=== PATIENT | male | born 1970 | race Hispanic/Latino ===

== ENCOUNTER 2017-03-23 23:33 | Observation (INO) | payer MEDICAID ==
--- NOTE | 2017-03-23 23:52 | ED PDOC ---
Arrival/HPI - General Time Seen by Provider: 03/23/17 23:35 Historian: Patient - History of Present Illness Narrative History of Present Illness (Text): 03/23/17 23:49 46y/o male, pmh including htn/hyperlipidemia/hypothyroidism/cad in 2013, nkda, psychiatric history including depression/schizoaffective/suicidal attempts/drug abuse, c/o lt. anterior chest pain x 2 hours with no fall or trauma. Sharp pain, radiating to the left arm, no numbness or tingling, stated that this feels like his previous AR, no nausea or vomiting, no heroine or cocaine abuse, no night sweat, no dizziness, no URI, no recent illness, no other medical or psychological complaints. Past Medical History - Provider Review Nursing Documentation Reviewed: Yes - Past History Past History: No Previous - Infectious Disease Hx of Infectious Diseases: None - Tetanus Immunization Tetanus Immunization: Up to Date - Cardiac Hx Cardiac Disorders: Yes Hx Hypertension: Yes - Pulmonary Hx Respiratory Disorders: No - Neurological Hx Neurological Disorder: No Hx Seizures: No - HEENT Hx HEENT Disorder: No - Renal Hx Renal Disorder: No - Endocrine/Metabolic Hx Hypothyroidism: No - Hematological/Oncological Hx Blood Disorders: No - Integumentary Hx Dermatological Disorder: No - Musculoskeletal/Rheumatological Hx Fractures: Yes (left leg splint-FX OF LEFT FEMUR FROM FALL) - Gastrointestinal Hx Gastrointestinal Disorders: No - Genitourinary/Gynecological Hx Genitourinary Disorders: No Hx Sexually Transmitted Diseases: No - Psychiatric Hx Substance Use: Yes - Past Surgical History Past Surgical History: No Previous - Surgical History Hx Appendectomy: Yes (at age 16) Hx Coronary Stent: Yes (x2 RCA 2013) Hx Orthopedic Surgery: Yes (for fracture of left foot) - Anesthesia Hx Anesthesia: Yes Hx Anesthesia Reactions: No - Suicidal Assessment Feels Threatened In Home Enviroment: No Family/Social History - Physician Review Nursing Documentation Reviewed: Yes Family/Social History: Unknown Family HX Smoking Status: Heavy Smoker > 10 Cigarettes Daily Hx Alcohol Use: No Hx Substance Use: Yes Hx Substance Use Treatment: No Allergies/Home Meds Allergies/Adverse Reactions: Allergies FISH Allergy (Intermediate, Verified 03/19/17 00:44) RASH Review of Systems - Review of Systems Constitutional: absent: Fatigue, Fevers Eyes: absent: Vision Changes ENT: absent: Hearing Changes Respiratory: absent: Cough, Sputum Cardiovascular: Chest Pain. absent: Palpitations, Edema Gastrointestinal: absent: Abdominal Pain, Nausea, Vomiting Skin: absent: Rash, Pruritis, Laceration, Abscess, Ulcer Psychiatric: absent: Anxiety, Depression, Suicidal Ideation Physical Exam Vital Signs Temp Pulse Resp BP Pulse Ox 03/24/17 03:21 65 18 117/67 95 03/24/17 02:02 72 18 127/75 95 03/24/17 00:47 74 18 123/79 96 03/23/17 23:33 98.4 F 73 18 122/68 94 L Pain Distress: Moderate Mental Status: Positive for: Alert and Oriented X 3 - Systems Exam Head: Present: Atraumatic, Normocephalic Pupils: Present: PERRL Extroacular Muscles: Present: EOMI Conjunctiva: Present: Normal Mouth: Present: Moist Mucous Membranes Neck: Present: Normal Range of Motion Respiratory/Chest: Present: Clear to Auscultation, Good Air Exchange. No: Respiratory Distress, Accessory Muscle Use, Wheezes, Decreased Breath Sounds, Rales, Retracting, Rhonchi, Tachypneic, Tender to Palpation Cardiovascular: Present: Regular Rate and Rhythm, Normal S1, S2. No: Murmurs Abdomen: Present: Normal Bowel Sounds. No: Tenderness, Distention, Peritoneal Signs Back: Present: Normal Inspection Upper Extremity: Present: Normal Inspection. No: Cyanosis, Edema Lower Extremity: Present: Normal Inspection. No: Edema Neurological: Present: GCS=15, Speech Normal, Motor Func Grossly Intact, Gait Normal, Memory Normal, Other (no tongue fasciculations, no hand tremors. ) Skin: Present: Warm, Dry, Normal Color. No: Rashes Psychiatric: Present: Alert, Oriented x 3, Normal Insight, Normal Concentration Medical Decision Making ED Course and Treatment: 03/23/17 23:52 -labs/ua/uds/cardiac enzymes/BNP -ekg -chest x-ray -IVF/pepcid/aspirin 325mg po -quality assurance monitor -observe and reassess 03/24/17 00:13 -Pt. still has chest pain despite the aspirin -morphine 4mg IV, nitro SL ordered. -IVF @ 100cc/hour ordered. 03/24/17 00:43 -Last Cath was from 05/13/2013 which was post PCI 11/23/2012: show 0% stenosis which advised stop smoking and continue aspirin and plavix by Dr. Ureña. -EKG : NSR @ 75 BPM, no ST elevation or depression, no T wave inversion, compared with previous ekg. -Chest x-ray show mild cardiomegally with no active infiltrate/consolidation. -Labs show no acute findings with negative 1 set of troponin. -UA show no UTI -UDS show +benzo/+methadone/+opiate -MARTHA score is 3 with 13% risk of 14 days. -Pt. need to be admitted for at least observation to trend troponin levels with engineering officer consult. -I discussed with the patient and he agreed to be admitted to telemetry for observation. 03/24/17 00:49 -Night Dr. fenton and pending for call back. 03/24/17 00:55 -I spoke to DR. Blackburn and the chairman president and chief executive officer Dr. Fermin, discussed about the labs/radiology and ekg results, they will come to evaluate the patient and admit the patient. -I spoke to Dr. Cash about the case/labs/risk factors and he agreed on the admission plan. - Lab Interpretations Lab Results: 03/24/17 00:00 03/24/17 00:00 Lab Results 03/24/17 00:00: Alcohol, Quantitative < 10 03/24/17 00:00: Sodium 138, Potassium 3.8, Chloride 99, Carbon Dioxide 28, Anion Gap 15, BUN 20, Creatinine 0.8, Est GFR ( Amer) > 60, Est GFR (Non- Af Amer) > 60, Random Glucose 106, Calcium 9.3, Magnesium 2.3 H, Total Bilirubin 0.6, AST 30, ALT 36, Alkaline Phosphatase 56, Lactate Dehydrogenase 401, Total Creatine Kinase 111, Troponin I < 0.01, NT-Pro-B Natriuret Pep 26.6, Total Protein 8.2, Albumin 4.3, Globulin 3.8, Albumin/Globulin Ratio 1.1, Lipase 50 03/24/17 00:00: WBC 12.6 H D, RBC 4.66, Hgb 14.2, Hct 41.2 L, MCV 88.4, MCH 30.5 , MCHC 34.5, RDW 13.6, Plt Count 252, MPV 9.4, Gran % 72.4 H, Lymph % (Auto) 18.9 L, [place] % (Auto) 7.2 H, Eos % (Auto) 1.2 L, Baso % (Auto) 0.3, Gran # 9.15 H, Lymph # 2.4, [place] # 0.9 H, Eos # 0.2, Baso # 0.04 I have reviewed the lab results: Yes Interpretation: No clinic. lab abnormalty - RAD Interpretation Radiology Orders: 03/23/17 23:47 CHEST PORTABLE [RAD] Stat - EKG Interpretation EKG Interpretation (Text): 03/23/17 23:53 -EKG : NSR @ 75 BPM, no ST elevation or depression, no T wave inversion, compared with previous ekg. Interpreted by ED Physician: Yes Type: 12 lead EKG Comparison: Com.w/previous EKG - Medication Orders Current Medication Orders: Discontinued Medications Aspirin (Aspirin) 325 mg PO STAT STA Stop: 03/23/17 23:48 Last Admin: 03/24/17 00:08 Dose: 325 mg Aspirin (Aspirin) 325 mg PO DAILY OTTO Last Admin: 03/24/17 12:42 Dose: 325 mg Atorvastatin Calcium (Lipitor) 20 mg PO DIN OTTO Atorvastatin Calcium (Lipitor) 40 mg PO DIN OTTO Famotidine (Pepcid) 20 mg IVP STAT STA Stop: 03/23/17 23:52 Last Admin: 03/24/17 00:09 Dose: 20 mg Heparin Sodium (Porcine) (Heparin) 5,000 units SC Q8 OTTO PRN Reason: Protocol Last Admin: 03/24/17 06:49 Dose: 5,000 units Sodium Chloride (Sodium Chloride 0.9%) 1,000 mls @ 100 mls/hr IV .Q10H OTTO Last Admin: 03/24/17 00:16 Dose: 100 mls/hr Morphine Sulfate (Morphine) 4 mg IVP STAT STA Stop: 03/24/17 00:12 Last Admin: 03/24/17 00:37 Dose: 4 mg Re-Assess: VICTORINO Pain Assessment Document 03/24/17 01:37 SB (Rec: 03/24/17 03:34 SB [id number]) Pain Reassessment Is this a pain reassessment? Yes Sleep Is patient sleeping during reassessment? No Presence of Pain Presence of Pain No Nicotine (Nicoderm Cq) 1 patch TD DAILY OTTO Last Admin: 04/28/17 10:25 Dose: 1 patch Nitroglycerin (Nitrostat Sl Tab) 0.3 mg SL STAT STA Stop: 03/24/17 00:13 Last Admin: 03/24/17 00:38 Dose: Not Given Non-Admin Reason: Patient Refused Pantoprazole Sodium (Protonix Ec Tab) 40 mg PO 0630 OTTO Last Admin: 03/24/17 06:50 Dose: 40 mg Tramadol HCl (Ultram) 50 mg PO STAT STA Stop: 03/24/17 03:08 Last Admin: 03/24/17 03:33 Dose: 50 mg Re-Assess: VICTORINO Pain Assessment Document 03/24/17 04:33 BG (Rec: 03/24/17 04:50 BG [id number]) Pain Reassessment Is this a pain reassessment? Yes Sleep Is patient sleeping during reassessment? No Presence of Pain Presence of Pain Yes Pain Scale Used Pain Scale Used Numeric Location Pain Location Body Site Chest Description Intensity of Pain at present 8 MARTHA Risk Score for UA/NSTEMI - MARTHA Risk Score Age > 64: NO 3 or more CAD Risk Factors: YES Known CAD (Stenosis greater than 50%): YES Aspirin use in past 7 days: NO Severe Angina: YES EKG ST changes greater than 0.5mm: NO Positive Cardiac Marker: NO MARTHA Score: 3 % risk at 14 days of: all cause mortality, new or recurrent AR, or severe recurrent ischemia requiring urgen revascularization: 13% - PA / [employer] OPERATOR / Resident Statement / has reviewed & agrees with the documentation as recorded. Disposition/Present on Arrival - Present on Arrival Any Indicators Present on Arrival: No History of DVT/PE: No History of Uncontrolled Diabetes: No Urinary Catheter: No History of Decub. Ulcer: No History Surgical Site Infection Following: None - Disposition Have Diagnosis and Disposition been Completed?: Yes Diagnosis: Chest pain Disposition: HOSPITALIZED Disposition Time: 00:14 Patient Plan: Admission, Telemetry Condition: STABLE
[2017-03-24 00:08] LABS: ADD MANUAL DIFF? NO
[2017-03-24] MEDS ORDERED: Morphine 4 mg/ml ISec IVP STA (00:11)
[2017-03-24] MEDS ORDERED: Sodium Chloride 0.9% 1,000 ML IV SCH (00:15)
[2017-03-24 00:25] LABS: ALB/GLOB RATIO 1.1 (1.1-1.8); ALKALINE PHOSPHATASE 56 U/L (38-133); ALT/SGPT 36 U/L (7-56); AST/SGOT 30 U/L (15-59); BASO # 0.04 K/mm3 (0.0-2.0); BASO % 0.3 % (0.0-3.0); BILIRUBIN,TOTAL 0.6 mg/dL (0.2-1.3); BLOOD UREA NITROGEN 20 mg/dL (7-21); CALCIUM 9.3 mg/dL (8.4-10.5); CARBON DIOXIDE 28 mmol/L (21-33); CHLORIDE 99 mmol/L (98-107); EOS # 0.2 (0.0-0.7); EOS % 1.2 % (1.5-5.0); GFR AFRICAN-AMERICAN > 60; GLUCOSE,RANDOM 106 mg/dL (70-110); GRAN # 9.15 (1.4-6.5); GRAN % 72.4 % (50.0-68.0); HEMATOCRIT 41.2 % (42.0-52.0); LIPASE 50 U/L (23-300); LYMPH # 2.4 (1.2-3.4); LYMPH % 18.9 % (22.0-35.0); MAGNESIUM 2.3 mg/dL (1.7-2.2); MEAN CELL VOLUME 88.4 fL (80.0-105.0); MEAN CORPUSCULAR HEMOGLOBIN 30.5 pg (25.0-35.0); MEAN CORPUSCULAR HGB CONC 34.5 g/dl (31.0-37.0); MEAN PLATELET VOLUME 9.4 fl (7.0-11.0); MONO # 0.9 (0.1-0.6); MONO % 7.2 % (1.0-6.0); PLATELET COUNT 252 10^3/uL (120.0-450.0); POTASSIUM 3.8 mmol/L (3.6-5.0); RED CELL DISTRIBUTION WIDTH 13.6 % (11.5-14.5); SODIUM 138 mmol/L (132-148); TOTAL PROTEIN 8.2 g/dL (5.8-8.3); WHITE BLOOD COUNT 12.6 10^3/ul (4.5-11.0)
[2017-03-24 00:38] LABS: TROPONIN I < 0.01 ng/mL
[2017-03-24 02:02] VITALS: O2SAT 95
--- NOTE | 2017-03-24 03:20 | CP.PCM.HP ---
<Zander Perez - Last Filed: 03/24/17 03:24> History of Present Illness - History of Present Illness History of Present Illness: CC: "Chest Pain" HPI: Pt is a 46 year old male with a PMHx of IA s/p 2 stents (2012), HTN, Hypercholesterolemia, hypothyroidism, bipolar disorder, Hepatitis C, and depression who presents to the ED with complaints of chest pain that began 5 hours earlier. Pt reports that the pain is similar to the pain he experienced when he had an IA in 2012. Pt reports that the pain is on the right side of his chest, and it radiates down his arm. He states that the pain feels like heartburn. Pt states that he is in a lot of pain and wants pain medications. Pt denies fever, chills, shortness of breath, nausea, and vomiting. PMHx: IA s/p 2 stents (2012), HTN, Hypercholesterolemia, hypothyroidism, bipolar disorder, and depression Home medications: He reports that his pharmacy is [email or web address], cannot recall all of his medications. He recalls neurontin 800 mg po tid, seroquel 100 mg po hs, oxycodone 15 mg po bid Allergies: Fish, NKDA Social Hx: reports smoking 1 pack of cigarettes/day, denies alcohol use, reports he used heroin in the past Past Surgical Hx: Left ankle fracture (1 year ago), Appendectomy (20 years ago) Family Hx: Brain cancer (brother), DM Present on Admission - Present on Admission Any Indicators Present on Admission: No Review of Systems - Constitutional Constitutional: absent: Chills, Fever - EENT Eyes: absent: Blurred Vision, Change in Vision Ears: absent: Dizziness Nose/Mouth/Throat: absent: Epistaxis, Nasal Congestion - Cardiovascular Cardiovascular: Chest Pain, Chest Pain at Rest. absent: Diaphoresis, Dyspnea, Leg Edema, Palpitations - Respiratory Respiratory: absent: Cough, Dyspnea - Gastrointestinal Gastrointestinal: Heartburn. absent: Belching, Bloating - Genitourinary Genitourinary: absent: Dysuria - Musculoskeletal Musculoskeletal: absent: Atrophy, Back Pain - Neurological Neurological: absent: Abnormal Hearing, Behavioral Changes - Psychiatric Psychiatric: absent: Anxiety - Endocrine Endocrine: absent: Palpitations - Hematologic/Lymphatic Hematologic: absent: Easy Bleeding Past Patient History - Infectious Disease Hx of Infectious Diseases: None - Tetanus Immunizations Tetanus Immunization: Up to Date - Past Medical History & Family History Past Medical History?: Yes - Past Social History Smoking Status: Heavy Smoker > 10 Cigarettes Daily - CARDIAC Hx Cardiac Disorders: Yes Hx Hypertension: Yes - PULMONARY Hx Respiratory Disorders: No - NEUROLOGICAL Hx Neurological Disorder: No Hx Seizures: No - HEENT Hx HEENT Problems: No - RENAL Hx Chronic Kidney Disease: No - ENDOCRINE/METABOLIC Hx Hypothyroidism: No - HEMATOLOGICAL/ONCOLOGICAL Hx Blood Disorders: No - INTEGUMENTARY Hx Dermatological Problems: No - MUSCULOSKELETAL/RHEUMATOLOGICAL Hx Fractures: Yes (left leg splint-FX OF LEFT FEMUR FROM FALL) - GASTROINTESTINAL Hx Gastrointestinal Disorders: No - GENITOURINARY/GYNECOLOGICAL Hx Genitourinary Disorders: No Hx Sexually Transmitted Disorders: No - PSYCHIATRIC Hx Substance Use: Yes - SURGICAL HISTORY Hx Appendectomy: Yes (at age 16) Hx Coronary Stent: Yes (x2 RCA 2013) Hx Orthopedic Surgery: Yes (for fracture of left foot) - ANESTHESIA Hx Anesthesia: Yes Hx Anesthesia Reactions: No Meds Allergies/Adverse Reactions: Allergies Allergy/AdvReac Type Severity Reaction Status Date / Time FISH Allergy Intermediate RASH Verified 03/26/17 17:24 Physical Exam - Constitutional Appears: No Acute Distress, Unkempt - Head Exam Head Exam: ATRAUMATIC, NORMOCEPHALIC - Eye Exam Eye Exam: EOMI, PERRL - ENT Exam ENT Exam: Mucous Membranes Moist. absent: Mucous Membranes Dry - Respiratory Exam Respiratory Exam: Clear to Auscultation Bilateral. absent: Rales, Rhonchi, Wheezes - Cardiovascular Exam Cardiovascular Exam: +S1, +S2. absent: Gallop, Rubs - GI/Abdominal Exam GI & Abdominal Exam: Normal Bowel Sounds, Soft. absent: Guarding, Tenderness - Extremities Exam Extremities exam: Positive for: full ROM. Negative for: pedal edema - Neurological Exam Neurological exam: Alert, Oriented x3 - Psychiatric Exam Psychiatric exam: Normal Affect, Normal Mood - Skin Skin Exam: Normal Color, Warm Results - Vital Signs Recent Vital Signs: Last Vital Signs Temp 98.4 F 03/23/17 23:33 Pulse 72 03/24/17 02:02 Resp 18 03/24/17 02:02 BP 127/75 03/24/17 02:02 Pulse Ox 95 03/24/17 02:02 - Labs Result Diagrams: 03/24/17 00:00 03/24/17 00:00 Labs: Laboratory Results - last 24 hr 03/24/17 02:00 Urine Opiates Screen Positive H Urine Methadone Screen Positive H Ur Barbiturates Screen Negative Ur Phencyclidine Scrn Negative Ur Amphetamines Screen Negative U Benzodiazepines Scrn Positive H U Oth Cocaine Metabols Negative U Cannabinoids Screen Negative Assessment & Plan - Assessment and Plan (Free Text) Assessment: Chest Pain r/o ACS: CXR pending read Troponins negative x 1 Serial troponins pending Morning EKG pending CXR pending official read Echocardiogram pending Leukocytosis: WBC - 12.6 Afebrile, nontachycardic CXR - pending official read Hx of Drug Dependence: Urine drug screen positive for methadone, opiates, and benzodiazepines HTN: BP currently 117/67 Call [facility] to verify meds Hypothyroidism: TSH, Free T3, T4 pending Hypercholesterolemia: Lipid panel pending Hx of Tobacco Dependence: Nicotine patch Smoking cessation and counseling Prophylactic Measures: DVT: Heparin 5000 units sc q8h, SCDs GI: Protonix 40 mg po qd <José Blackburn P - Last Filed: 04/03/17 19:37> Results - Vital Signs Recent Vital Signs: Last Vital Signs Temp 97.8 F 03/24/17 11:47 Pulse 75 03/24/17 11:47 Resp 20 03/24/17 11:47 BP 110/70 03/24/17 11:47 Pulse Ox 95 03/24/17 03:21 - Labs Result Diagrams: 03/24/17 10:00 03/24/17 10:00 Attending/Attestation - Attestation I have personally seen and examined this patient.: Yes I have fully participated in the care of the patient.: Yes I have reviewed all pertinent clinical information: Yes
[2017-03-24 04:41] VITALS: BMI 32.8
[2017-03-24] MEDS ORDERED: Pantoprazole 40 mg EC Tab PO SCH (06:30)
--- NOTE | 2017-03-24 07:33 | RAD ---
HISTORY: chest pain COMPARISON: Chest x-ray performed 03/18/17 TECHNIQUE: Chest, one view. FINDINGS: Examination limited by habitus and hypoinflation. LUNGS: No focal consolidation. Please note that chest x-ray has limited sensitivity for the detection of pulmonary masses. PLEURA: No significant pleural effusion identified. No definite pneumothorax . CARDIOVASCULAR: Heart size appears top normal. OSSEOUS STRUCTURES: No acute osseous abnormality identified. VISUALIZED UPPER ABDOMEN: Unremarkable. OTHER FINDINGS: None. IMPRESSION: No focal consolidation, significant pleural effusion, or definite pneumothorax identified.
[2017-03-24 10:10] LABS: ADD MANUAL DIFF? NO
[2017-03-24 10:12] LABS: BASO # 0.04 K/mm3 (0.0-2.0); BASO % 0.5 % (0.0-3.0); EOS # 0.2 (0.0-0.7); EOS % 3.1 % (1.5-5.0); GRAN # 3.72 (1.4-6.5); GRAN % 49.3 % (50.0-68.0); HEMATOCRIT 37.9 % (42.0-52.0); LYMPH # 2.9 (1.2-3.4); LYMPH % 38.7 % (22.0-35.0); MEAN CELL VOLUME 89.2 fL (80.0-105.0); MEAN CORPUSCULAR HEMOGLOBIN 30.1 pg (25.0-35.0); MEAN CORPUSCULAR HGB CONC 33.8 g/dl (31.0-37.0); MEAN PLATELET VOLUME 9.2 fl (7.0-11.0); MONO # 0.6 (0.1-0.6); MONO % 8.4 % (1.0-6.0); PLATELET COUNT 216 10^3/uL (120.0-450.0); RED CELL DISTRIBUTION WIDTH 13.5 % (11.5-14.5); WHITE BLOOD COUNT 7.5 10^3/ul (4.5-11.0)
[2017-03-24 10:41] LABS: TROPONIN I < 0.01 ng/mL
--- NOTE | 2017-03-24 11:19 | CARD ---
APPROVED REPORT EKG Measurement Heart [id number] <Conclusion> Sinus bradycardia Otherwise normal ECG
--- NOTE | 2017-03-24 11:21 | CARD ---
APPROVED REPORT EKG Measurement Heart [id number] <Conclusion> Normal sinus rhythm Normal ECG
[2017-03-24 11:48] VITALS: BP 110/70; PULSE 75; RESP 20; TEMP 97.8
[2017-03-24 12:33] LABS: ALKALINE PHOSPHATASE 65 U/L (38-133); ALT/SGPT 34 U/L (7-56); AST/SGOT 24 U/L (15-59); BILIRUBIN,TOTAL 0.5 mg/dL (0.2-1.3); BLOOD UREA NITROGEN 16 mg/dL (7-21); CALCIUM 8.5 mg/dL (8.4-10.5); CARBON DIOXIDE 26 mmol/L (21-33); CHLORIDE 101 mmol/L (98-107); CHOLESTEROL 203 mg/dL (130-200); GFR AFRICAN-AMERICAN > 60; GLUCOSE,RANDOM 91 mg/dL (70-110); MAGNESIUM 2.3 mg/dL (1.7-2.2); PHOSPHOROUS 3.7 mg/dL (2.5-4.5); POTASSIUM 3.8 mmol/L (3.6-5.0); SODIUM 135 mmol/L (132-148); TOTAL PROTEIN 7.1 g/dL (5.8-8.3)
--- NOTE | 2017-03-24 15:25 | CP.PCM.DIS ---
<Gilma Drew - Last Filed: 03/24/17 15:30> Provider - Provider Date of Admission: 03/24/17 00:53 Attending physician: Benoit Montgomery MD Time Spent in preparation of Discharge (in minutes): 35 Diagnosis - Discharge Diagnosis (1) Chest pain at rest Status: Acute (2) CAD (coronary artery disease) Status: Chronic Priority: Medium (3) Drug abuse Status: Suspected (4) HLD (hyperlipidemia) Status: Chronic (5) HTN (hypertension) Status: Chronic (6) Depression Status: Chronic (7) Bipolar 1 disorder Status: Acute (8) Hypothyroidism Status: Chronic (9) GERD (gastroesophageal reflux disease) Status: Chronic (10) Anxiety Status: Chronic Hospital Course - Lab Results Lab Results: Most Recent Lab Values WBC 7.5 10^3/ul (4.5-11.0) D 03/24/17 10:00 RBC 4.25 10^6/uL (3.5-6.1) 03/24/17 10:00 Hgb 12.8 gm/dL (14.0-18.0) L 03/24/17 10:00 Hct 37.9 % (42.0-52.0) L 03/24/17 10:00 MCV 89.2 fL (80.0-105.0) 03/24/17 10:00 MCH 30.1 pg (25.0-35.0) 03/24/17 10:00 MCHC 33.8 g/dl (31.0-37.0) 03/24/17 10:00 RDW 13.5 % (11.5-14.5) 03/24/17 10:00 Plt Count 216 10^3/uL (120.0-450.0) 03/24/17 10:00 MPV 9.2 fl (7.0-11.0) 03/24/17 10:00 Gran % 49.3 % (50.0-68.0) L 03/24/17 10:00 Lymph % (Auto) 38.7 % (22.0-35.0) H 03/24/17 10:00 [place] % (Auto) 8.4 % (1.0-6.0) H 03/24/17 10:00 Eos % (Auto) 3.1 % (1.5-5.0) 03/24/17 10:00 Baso % (Auto) 0.5 % (0.0-3.0) 03/24/17 10:00 Gran # 3.72 (1.4-6.5) 03/24/17 10:00 Lymph # 2.9 (1.2-3.4) 03/24/17 10:00 [place] # 0.6 (0.1-0.6) 03/24/17 10:00 Eos # 0.2 (0.0-0.7) 03/24/17 10:00 Baso # 0.04 K/mm3 (0.0-2.0) 03/24/17 10:00 APTT 31.3 Seconds (23.7-30.8) H 03/24/17 10:00 Sodium 135 mmol/L (132-148) 03/24/17 10:00 Potassium 3.8 mmol/L (3.6-5.0) 03/24/17 10:00 Chloride 101 mmol/L (98-107) 03/24/17 10:00 Carbon Dioxide 26 mmol/L (21-33) 03/24/17 10:00 Anion Gap 12 (10-20) 03/24/17 10:00 BUN 16 mg/dL (7-21) 03/24/17 10:00 Creatinine 0.8 mg/dL (0.5-1.4) 03/24/17 10:00 Est GFR ( Amer) > 60 03/24/17 10:00 Est GFR (Non-Af Amer) > 60 03/24/17 10:00 Random Glucose 91 mg/dL (70-110) 03/24/17 10:00 Calcium 8.5 mg/dL (8.4-10.5) 03/24/17 10:00 Phosphorus 3.7 mg/dL (2.5-4.5) 03/24/17 10:00 Magnesium 2.3 mg/dL (1.7-2.2) H 03/24/17 10:00 Total Bilirubin 0.5 mg/dL (0.2-1.3) 03/24/17 10:00 AST 24 U/L (15-59) 03/24/17 10:00 ALT 34 U/L (7-56) 03/24/17 10:00 Alkaline Phosphatase 65 U/L (38-133) 03/24/17 10:00 Lactate Dehydrogenase 306 U/L (333-699) L 03/24/17 10:00 Total Creatine Kinase 102 U/L (35-230) 03/24/17 10:00 Troponin I < 0.01 ng/mL 03/24/17 10:00 NT-Pro-B Natriuret Pep 26.6 pg/mL (0-450) 03/24/17 00:00 Total Protein 7.1 g/dL (5.8-8.3) 03/24/17 10:00 Albumin 3.6 g/dL (3.0-4.8) 03/24/17 10:00 Globulin 3.5 gm/dL 03/24/17 10:00 Albumin/Globulin Ratio 1.0 (1.1-1.8) L 03/24/17 10:00 Triglycerides 416 mg/dL (35-160) H 03/24/17 10:00 Cholesterol 203 mg/dL (130-200) H 03/24/17 10:00 LDL Cholesterol Direct 118 mg/dL (0-129) 03/24/17 10:00 HDL Cholesterol 27 mg/dL (29-60) L 03/24/17 10:00 Lipase 50 U/L (23-300) 03/24/17 00:00 Free T4 0.79 ng/dL (0.78-2.19) 03/24/17 10:00 TSH 3rd Generation 3.86 mIU/mL (0.46-4.68) 03/24/17 10:00 Urine Opiates Screen Positive (NEGATIVE) H 03/24/17 02:00 Urine Methadone Screen Positive (NEGATIVE) H 03/24/17 02:00 Ur Barbiturates Screen Negative (NEGATIVE) 03/24/17 02:00 Ur Phencyclidine Scrn Negative (NEGATIVE) 03/24/17 02:00 Ur Amphetamines Screen Negative (NEGATIVE) 03/24/17 02:00 U Benzodiazepines Scrn Positive (NEGATIVE) H 03/24/17 02:00 U Oth Cocaine Metabols Negative (NEGATIVE) 03/24/17 02:00 U Cannabinoids Screen Negative (NEGATIVE) 03/24/17 02:00 Alcohol, Quantitative < 10 mg/dL (0-10) 03/24/17 00:00 - Hospital Course Hospital Course: Pt is a 46 year old male with a PMHx of CT s/p 1 drug eluting stent (2012), HTN , Hypercholesterolemia, hypothyroidism, bipolar disorder, Hepatitis C, and depression who presents to the ED with complaints of "heartburn-like" chest pain that began 5 hours earlier. Pt reports that the pain is similar to the pain he experienced when he had an CT in 2013, but does not radiate down his arm or to his neck. Patient was just discharged from [facility] psychiatric unit the day of presentation, where he was admitted for suicidal ideation, and was otherwise asymptomatic. Patient states that he was taking plavix and ASA after the stent, but that he hasn't been taking any medications besides methadone, which he gets for himself, for heroine withdrawal. He doesn't take his prescribed medications due to homelessness and difficulty affording them. Patient was normocardic, normotensive, and afebrile at presentation. Patient had an EKG which showed NSR with no ST changes. CXR showed NAPD. Troponins were negative x2. Urine drug screen tested positive for benzo's, opiates, and methamphetamine metabolites. Chest pain resolved after administration of morphine, nitroglycerin, pepcid, and therapeutic aspirin in the ED. Patient was admitted to the telemetry floor for continued monitoring and ACS r/o and cardiology was consulted. On hospital day one patient remained asymptomatic, vital signs remained stable, and he was witnessed ambulating stably. Patient signed out AMA before cardiology was able to evaluate him, stating that he understood this increased his risk for coronary events, strokes, and even , stating that he would follow up with an outpatient unix system administrator. For full hospital course, see chart Discharge Exam - Head Exam Head Exam: ATRAUMATIC, NORMOCEPHALIC - Eye Exam Eye Exam: Normal appearance. absent: Conjunctival injection, Scleral icterus - ENT Exam ENT Exam: Mucous Membranes Moist, Normal Oropharynx - Respiratory Exam Respiratory Exam: Clear to PA & Lateral, NORMAL BREATHING PATTERN. absent: Accessory Muscle Use, Respiratory Distress - Cardiovascular Exam Cardiovascular Exam: RRR, +S1, +S2. absent: Systolic Murmur - GI/Abdominal Exam GI & Abdominal Exam: Soft. absent: Distended, Tenderness - Extremities Exam Additional comments: no calf tenderness, pedal edema, pedal pulses present BL - Back Exam Back exam: NORMAL INSPECTION. absent: CVA tenderness (L), CVA tenderness (R), paraspinal tenderness, vertebral tenderness - Neurological Exam Neurological exam: Alert, CN II-XII Intact, Oriented x3 - Psychiatric Exam Psychiatric exam: Normal Affect, Normal Mood - Skin Skin Exam: Dry, Intact, Normal Color, Warm Discharge Plan - Discharge Medications Prescriptions: Aspirin 81 mg PO DAILY 14 Days Atorvastatin [Lipitor] 40 mg PO DIN #14 tab Metoprolol Succinate [Toprol XL] 12.5 mg PO DAILY #14 tab - Follow Up Plan Condition: STABLE Disposition: AGAINST MEDICAL ADVICE Additional Instructions: Follow up with your primary medical doctor or the [facility] within one week Follow up with [facility] early next week Follow up with a methadone clinic for substance withdrawal Take all medications as prescribed. Do not stop, change, or skip any doses unless you talk to a physician Stick to a low fat, low cholesterol, low salt diet. Do cardiovascular exercise 3 -5 times a week. Lose weight to lower your risk of further heart disease. Return to the ER for new, worsened, or concerning symptoms [facility]: [facility] [[facility]] [facility] [Outside] <Ulises SLAUGHTER,Benoit - Last Filed: 03/24/17 16:08> Provider - Provider Date of Admission: 03/24/17 00:53 Attending physician: Benoit Montgomery MD Hospital Course - Lab Results Lab Results: Most Recent Lab Values WBC 7.5 10^3/ul (4.5-11.0) D 03/24/17 10:00 RBC 4.25 10^6/uL (3.5-6.1) 03/24/17 10:00 Hgb 12.8 gm/dL (14.0-18.0) L 03/24/17 10:00 Hct 37.9 % (42.0-52.0) L 03/24/17 10:00 MCV 89.2 fL (80.0-105.0) 03/24/17 10:00 MCH 30.1 pg (25.0-35.0) 03/24/17 10:00 MCHC 33.8 g/dl (31.0-37.0) 03/24/17 10:00 RDW 13.5 % (11.5-14.5) 03/24/17 10:00 Plt Count 216 10^3/uL (120.0-450.0) 03/24/17 10:00 MPV 9.2 fl (7.0-11.0) 03/24/17 10:00 Gran % 49.3 % (50.0-68.0) L 03/24/17 10:00 Lymph % (Auto) 38.7 % (22.0-35.0) H 03/24/17 10:00 [place] % (Auto) 8.4 % (1.0-6.0) H 03/24/17 10:00 Eos % (Auto) 3.1 % (1.5-5.0) 03/24/17 10:00 Baso % (Auto) 0.5 % (0.0-3.0) 03/24/17 10:00 Gran # 3.72 (1.4-6.5) 03/24/17 10:00 Lymph # 2.9 (1.2-3.4) 03/24/17 10:00 [place] # 0.6 (0.1-0.6) 03/24/17 10:00 Eos # 0.2 (0.0-0.7) 03/24/17 10:00 Baso # 0.04 K/mm3 (0.0-2.0) 03/24/17 10:00 APTT 31.3 Seconds (23.7-30.8) H 03/24/17 10:00 Sodium 135 mmol/L (132-148) 03/24/17 10:00 Potassium 3.8 mmol/L (3.6-5.0) 03/24/17 10:00 Chloride 101 mmol/L (98-107) 03/24/17 10:00 Carbon Dioxide 26 mmol/L (21-33) 03/24/17 10:00 Anion Gap 12 (10-20) 03/24/17 10:00 BUN 16 mg/dL (7-21) 03/24/17 10:00 Creatinine 0.8 mg/dL (0.5-1.4) 03/24/17 10:00 Est GFR ( Amer) > 60 03/24/17 10:00 Est GFR (Non-Af Amer) > 60 03/24/17 10:00 Random Glucose 91 mg/dL (70-110) 03/24/17 10:00 Calcium 8.5 mg/dL (8.4-10.5) 03/24/17 10:00 Phosphorus 3.7 mg/dL (2.5-4.5) 03/24/17 10:00 Magnesium 2.3 mg/dL (1.7-2.2) H 03/24/17 10:00 Total Bilirubin 0.5 mg/dL (0.2-1.3) 03/24/17 10:00 AST 24 U/L (15-59) 03/24/17 10:00 ALT 34 U/L (7-56) 03/24/17 10:00 Alkaline Phosphatase 65 U/L (38-133) 03/24/17 10:00 Lactate Dehydrogenase 306 U/L (333-699) L 03/24/17 10:00 Total Creatine Kinase 102 U/L (35-230) 03/24/17 10:00 Troponin I < 0.01 ng/mL 03/24/17 10:00 NT-Pro-B Natriuret Pep 26.6 pg/mL (0-450) 03/24/17 00:00 Total Protein 7.1 g/dL (5.8-8.3) 03/24/17 10:00 Albumin 3.6 g/dL (3.0-4.8) 03/24/17 10:00 Globulin 3.5 gm/dL 03/24/17 10:00 Albumin/Globulin Ratio 1.0 (1.1-1.8) L 03/24/17 10:00 Triglycerides 416 mg/dL (35-160) H 03/24/17 10:00 Cholesterol 203 mg/dL (130-200) H 03/24/17 10:00 LDL Cholesterol Direct 118 mg/dL (0-129) 03/24/17 10:00 HDL Cholesterol 27 mg/dL (29-60) L 03/24/17 10:00 Lipase 50 U/L (23-300) 03/24/17 00:00 Free T4 0.79 ng/dL (0.78-2.19) 03/24/17 10:00 TSH 3rd Generation 3.86 mIU/mL (0.46-4.68) 03/24/17 10:00 Urine Opiates Screen Positive (NEGATIVE) H 03/24/17 02:00 Urine Methadone Screen Positive (NEGATIVE) H 03/24/17 02:00 Ur Barbiturates Screen Negative (NEGATIVE) 03/24/17 02:00 Ur Phencyclidine Scrn Negative (NEGATIVE) 03/24/17 02:00 Ur Amphetamines Screen Negative (NEGATIVE) 03/24/17 02:00 U Benzodiazepines Scrn Positive (NEGATIVE) H 03/24/17 02:00 U Oth Cocaine Metabols Negative (NEGATIVE) 03/24/17 02:00 U Cannabinoids Screen Negative (NEGATIVE) 03/24/17 02:00 Alcohol, Quantitative < 10 mg/dL (0-10) 03/24/17 00:00 Attending/Attestation - Attestation I have personally seen and examined this patient.: Yes I have fully participated in the care of the patient.: Yes I have reviewed all pertinent clinical information, including history, physical exam and plan: Yes Notes (Text): Patient was seen and examined with medical billing manager .Agreed with resident assessment and plan. 46 year old male with a PMHx of CT s/p 1 drug eluting stent (2012), HTN, Hypercholesterolemia, hypothyroidism, bipolar disorder, Hepatitis C, and depression was admitted with atypical chest pain.EKG is negative for ischemic changes, did not want to stay in the hospital for cardiology evaluation, left hospital against medical advice.He was alert,awake and oriented at the time of discharge. Management plan was discussed in detail with patient Education was provided.
--- NOTE | 2017-03-24 15:31 | CON ---
DATE: 03/24/2017 REASON FOR CONSULTATION: Chest pain. HISTORY OF PRESENT ILLNESS: The patient is a 46-year-old male who is a smoker who has a history of c oronary artery disease, status post coronary stenting in 2012. He presented because of persistent ch est pain. The patient is unable to describe the character of chest pain, but denies any significant radiation. The patient has a history of hepatitis C and depression. The patient denies any associat ed diaphoresis, dizziness or syncope. SOCIAL HISTORY: The patient is a smoker. Reports past heroin abuse. MEDICATIONS: Include aspirin 325 mg daily, Protonix 40 mg p.o. once a day, heparin 5000 units q. 8 h ours subcutaneously, Plavix 75 mg once a day, aspirin 325 mg once a day, Lipitor 40 mg once a day. PHYSICAL EXAMINATION: GENERAL: The patient is a middle-aged male who does not appear to be in any distress. VITAL SIGNS: Blood pressure 110/70, heart rate 75, temperature 97.8, respirations 20. HEENT: Normocephalic. NECK: No JVD. CHEST: Clear. HEART: S1, S2 regular. ABDOMEN: Soft. EXTREMITIES: No edema. EKG revealed normal sinus rhythm. LABORATORY DATA: SMA-7 is within normal limits. Two sets of troponins are negative. TSH level is w ithin normal limits. PTT 31.3, slightly elevated. Hemoglobin and hematocrit 12.8 and 37.9. White co unt and platelet count are within normal limits. Urine drug screen is positive for opiates, methadon e and benzodiazepine. ASSESSMENT: 1. Atypical chest pain, myocardial infarction is ruled out. 2. History of coronary artery disease status post coronary stenting in 2012. RECOMMENDATIONS: Continue current aspirin, Plavix and Lipitor therapy. I will review the echocardio graphic study performed today. Isidro Veras MD cc: [id number] TT: 03/24/2017 15:30:21 Confirmation # [id number] Dictation # [id number] adolph
--- NOTE | 2017-03-24 17:33 | CARD ---
APPROVED REPORT EXAM: Two-dimensional and M-mode echocardiogram with Doppler and color Doppler. INDICATION Chest Pain HX OF TX 2D DIMENSIONS Left Atrium (2D)4.2 (1.6-4.0cm)IVSd1.0 (0.7-1.1cm) LVDd4.6 (3.9-5.9cm)PWd1.1 (0.7-1.1cm) LVDs3.3 (2.5-4.0cm)FS (%) 29.0 % LVEF (%)55.7 (>50%) M-Mode DIMENSIONS Aortic Root3.50 (2.2-3.7cm)Aortic Cusp Exc.2.10 (1.5-2.0cm) Aortic Valve AoV Peak Hsclqarr016.0cm/Carline Peak GR.8mmHg Mitral Valve MV E Ctfsrlbm42.4cm/sMV A Qqfrcvov18.3cm/sE/A ratio1.3 TDI Lateral E' Peak V12.80cm/sMedial E' Peak V8.48cm/sE/Lateral E'6.4 E/Medial E'9.6 Pulmonary Valve PV Peak Vowaxydk92.1cm/sPV Peak Grad.1mmHg Tricuspid Valve TR Peak Ghfscjyq292va/sRAP [id number] Peak Gr.19mmHg [id number] LEFT VENTRICLE The left ventricle is normal size. There is normal left ventricular wall thickness. The left ventricular function is normal.Ef-55-60% There is normal LV segmental wall motion. The left ventricular diastolic function is normal. No left ventricle thrombus noted on this study. There is no ventricular septal defect visualized. There is no left ventricular aneurysm. There is no mass noted in the left ventricle. RIGHT VENTRICLE The right ventricle is normal size. There is normal right ventricular wall thickness. The right ventricular systolic function is normal. ATRIA The left atrium is mildly dilated. The right atrium size is normal. The interatrial septum is intact with no evidence for an atrial septal defect. AORTIC VALVE The aortic valve is thickened but opens well. The aortic valve is mildly sclerotic. There is trace aortic regurgitation. There is no aortic valvular stenosis. There is no aortic valvular vegetation. MITRAL VALVE The mitral valve is thickened but opens well. Mitral regurgitation is trace. There is no mitral valve stenosis. There is no evidence of mitral valve prolapse. TRICUSPID VALVE The tricuspid valve leaflets are thickened , but open well. There is trace tricuspid regurgitation.RVSP-29 mmof hg. There is no tricuspid valve stenosis. There is no tricuspid valve prolapse or vegetation. PULMONIC VALVE The pulmonic valve is borderline thickened. There is trace pulmonic valvular regurgitation. There is no pulmonic valvular stenosis. GREAT VESSELS The aortic root is normal in size. The ascending aorta is normal in size. The pulmonary artery is normal. The IVC is normal in size and collapses >50% with inspiration. PERICARDIAL EFFUSION There is no pleural effusion. There is no pericardial effusion. <Conclusion> The left ventricle is normal size. There is normal left ventricular wall thickness. The left ventricular function is normal.Ef-55-60% There is trace aortic regurgitation. Mitral regurgitation is trace. There is trace tricuspid regurgitation.RVSP-29 mmof hg. There is trace pulmonic valvular regurgitation. No Vegetation or thrombus noted.
== END 2017-03-24 15:13 | disposition left against medical advice (07) ==
LOC: ED 23:33 → ERH 03-24 00:53 → 2RNO 03-24 03:48
PROVIDERS: ADMIT Internal Medicine; ATTEND Internal Medicine
DX: R07.89 Other chest pain (principal); I10 Essential (primary) hypertension; F31.9 Bipolar disorder, unspecified; F41.9 Anxiety disorder, unspecified; E03.9 Hypothyroidism, unspecified; K21.9 Gastro-esophageal reflux disease without esophagitis; E78.00 Pure hypercholesterolemia, unspecified; E78.5 Hyperlipidemia, unspecified; B19.20 Unspecified viral hepatitis C without hepatic coma; F17.210 Nicotine dependence, cigarettes, uncomplicated; F11.10 Opioid abuse, uncomplicated; I25.10 Atherosclerotic heart disease of native coronary artery without angina pectoris; I25.2 Old myocardial infarction; Z95.5 Presence of coronary angioplasty implant and graft
CPT/HCPCS: 71010; 80053; 80061; 80320; 80324; 80345; 80346; 80349; 80353; 80358; 80361; 82550; 83615; 83690; 83735; 83880; 83992; 84100; 84439; 84443; 84481; 84484; 85025; 85730; 93005; 93306; 96372; 96374; 96375; 99285; G0378; J1644; J2270; J7040

== ENCOUNTER 2017-04-05 17:19 | Inpatient (IN) | payer MEDICAID ==
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
[2017-04-05 17:57] LABS: ADD MANUAL DIFF? NO
[2017-04-05 18:05] LABS: PH,URINE 5.5 (4.7-8.0); URINE BILIRUBIN NEGATIVE (NEGATIVE); URINE BLOOD SMALL (NEGATIVE); URINE GLUCOSE (UA) NEGATIVE (NEGATIVE); URINE KETONE TRACE mg/dL (NEGATIVE); URINE LEUKOCYTE ESTERASE NEGATIVE Leu/uL (NEGATIVE); URINE PROTEIN 30 mg/dL (<30 mg/dL); URINE UROBILINOGEN 0.2 E.U./dL (<1 E.U./dL)
[2017-04-05 18:07] VITALS: BMI 32.3
[2017-04-05 18:07] LABS: BASO # 0.06 K/mm3 (0.0-2.0); BASO % 0.5 % (0.0-3.0); EOS # 0.2 (0.0-0.7); EOS % 1.9 % (1.5-5.0); GRAN # 7.97 (1.4-6.5); GRAN % 67.3 % (50.0-68.0); HEMATOCRIT 42.3 % (42.0-52.0); LYMPH # 2.6 (1.2-3.4); LYMPH % 21.9 % (22.0-35.0); MEAN CELL VOLUME 90.2 fL (80.0-105.0); MEAN CORPUSCULAR HEMOGLOBIN 30.7 pg (25.0-35.0); MEAN PLATELET VOLUME 9.7 fl (7.0-11.0); MONO % 8.4 % (1.0-6.0); PLATELET COUNT 266 10^3/uL (120.0-450.0); RED CELL DISTRIBUTION WIDTH 13.8 % (11.5-14.5); URINE APPEARANCE CLEAR (CLEAR); URINE COLOR YELLOW (YELLOW); WHITE BLOOD COUNT 11.9 10^3/ul (4.5-11.0)
[2017-04-05 18:13] LABS: ALB/GLOB RATIO 1.2 (1.1-1.8); ALKALINE PHOSPHATASE 81 U/L (38-133); ALT/SGPT 43 U/L (7-56); AST/SGOT 41 U/L (15-59); BILIRUBIN,TOTAL 1.2 mg/dL (0.2-1.3); BLOOD UREA NITROGEN 19 mg/dL (7-21); CALCIUM 9.3 mg/dL (8.4-10.5); CARBON DIOXIDE 25 mmol/L (21-33); CHLORIDE 99 mmol/L (98-107); GFR AFRICAN-AMERICAN > 60; GLUCOSE,RANDOM 92 mg/dL (70-110); POTASSIUM 3.8 mmol/L (3.6-5.0); SODIUM 136 mmol/L (132-148); TOTAL PROTEIN 8.5 g/dL (5.8-8.3)
[2017-04-05 18:36] LABS: URINE BACTERIA MOD (NEG); URINE URIC ACID CRYSTALS OCC /hpf; URINE WBC 0 - 2 /hpf (0-6)
[2017-04-05] MEDS ORDERED: Alum-Mag Hydrox-Simethicone Susp (30 mL) PO PRN (20:13)
[2017-04-05] MEDS ORDERED: Magnesium Hydroxide Susp 30 ml UD PO PRN (20:13)
[2017-04-05 21:27] VITALS: O2SAT 94
[2017-04-06 08:07] LABS: CHOLESTEROL 129 mg/dL (130-200); GLUCOSE,FASTING 84 mg/dL (65-110)
--- NOTE | 2017-04-06 08:27 | RAD ---
HISTORY: PES eval COMPARISON: 03/23/2017 FINDINGS: LUNGS: No active pulmonary disease. PLEURA: No significant pleural effusion identified, no pneumothorax apparent. CARDIOVASCULAR: Normal. OSSEOUS STRUCTURES: No significant abnormalities. VISUALIZED UPPER ABDOMEN: Normal. OTHER FINDINGS: None. IMPRESSION: No active disease.
--- NOTE | 2017-04-06 10:25 | CARD ---
APPROVED REPORT EKG Measurement Heart [id number] [place] [id number] <Conclusion> Normal sinus rhythm NSSTW changes
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
[2017-04-06] MEDS: Metoprolol Succinate 25 mg XL Tab PO SCH (13:47)
--- NOTE | 2017-04-06 14:09 | CP.PCM.CON ---
<Francisco Hamilton - Last Filed: 04/06/17 16:33> History of Present Illness - History of Present Illness History of Present Illness: 46M with pmh of HTN, CAD with 2 stents, and Depression, presents with SI for several days and attempting suicide by jumping in front of a bus. He admitted to drinking 2 beers, taking 3 Oxycodone, and 2 Xanax prior to jumping in front of the bus. The bus came to a stop and did not hit the patient. EMS was called and he was transferred to [place]. He also admits to snorting multiple bags of heroin every day. PMD: pt. used to see [facility] PMH: HT, CAD with 2 stents approx 2 years ago PSH: left ankle surg FH: brother has cancer, Parents healthy SH homeless does not work Tob - 1 pack/day/20 years Alc - 1-2 drinks/day Drugs - snorts heroin (multiple bags/day) All: fish Review of Systems - EENT Eyes: absent: Blurred Vision, Change in Vision Ears: absent: Decreased Hearing Nose/Mouth/Throat: absent: Hoarsness, Sore Throat, Neck Pain - Cardiovascular Cardiovascular: absent: Chest Pain, Chest Pain at Rest, Dyspnea, Leg Edema, Leg Ulcers, Orthopnea, Palpitations - Respiratory Respiratory: absent: Cough, Dyspnea, Hemoptysis - Gastrointestinal Gastrointestinal: absent: Diarrhea, Dysphagia, Heartburn, Nausea, Vomiting - Genitourinary Genitourinary: absent: Dysuria, Flank Pain, Hematuria, Urinary Incontinence, Urinary Hesitance, Freq UTI - Musculoskeletal Musculoskeletal: absent: Back Pain, Muscle Weakness, Neck Pain, Numbness, Stiffness Additional comments: Chronic pain in left ankle s/p ankle surgery - Integumentary Integumentary: absent: Dry Skin, Rash, Skin Pain, Wounds - Neurological Neurological: absent: Dizziness, Numbness, Headaches, Loss of Vision, Weakness - Psychiatric Psychiatric: Depression. absent: Homicidal Ideation, Suicidal Ideation Additional comments: Pt. had SI with attempt prior to admission, but currently does not report SI or HI Past Patient History - Infectious Disease Hx of Infectious Diseases: None - Tetanus Immunizations Tetanus Immunization: Up to Date - Past Medical History & Family History Past Medical History?: Yes - Past Social History Smoking Status: Heavy Smoker > 10 Cigarettes Daily Alcohol: < 2 Drinks/Day Drugs: Opiates, Prescription medications Home Situation {Lives}: Homeless - CARDIAC Hx Cardiac Disorders: Yes Hx Heart Attack: Yes Hx Hypertension: Yes - PULMONARY Hx Respiratory Disorders: No - NEUROLOGICAL Hx Neurological Disorder: No Hx Seizures: No - HEENT Hx HEENT Problems: No - RENAL Hx Chronic Kidney Disease: No - ENDOCRINE/METABOLIC Hx Hypothyroidism: No - HEMATOLOGICAL/ONCOLOGICAL Hx Blood Disorders: No - INTEGUMENTARY Hx Dermatological Problems: No - MUSCULOSKELETAL/RHEUMATOLOGICAL Hx Musculoskeletal Disorders: Yes Other/Comment: FX OF LEFT FOOT AND LEG - GASTROINTESTINAL Hx Gastrointestinal Disorders: No - GENITOURINARY/GYNECOLOGICAL Hx Sexually Transmitted Disorders: No - PSYCHIATRIC Hx Psychophysiologic Disorder: Yes Hx Depression: Yes Hx Substance Use: Yes - SURGICAL HISTORY Hx Appendectomy: Yes (at age 16) Hx Coronary Stent: Yes (x2 RCA 2013) - ANESTHESIA Hx Anesthesia: Yes Hx Anesthesia Reactions: No Meds Allergies/Adverse Reactions: Allergies Allergy/AdvReac Type Severity Reaction Status Date / Time FISH Allergy Intermediate RASH Verified 04/06/17 00:03 - Medications Medications: Current Medications Acetaminophen (Tylenol 325mg Tab) 650 mg PO Q4H PRN PRN Reason: Pain, Mild (1-3) Al Hydrox/Mg Hydrox/Simethicone (Maalox Plus 30 Ml) 30 ml PO DAILY PRN PRN Reason: Upset Stomach Aspirin (Aspirin Chewable) 81 mg PO DAILY [facility] Last Admin: 04/06/17 13:46 Dose: 81 mg Atorvastatin Calcium (Lipitor) 40 mg PO DIN [facility] Clonidine HCl (Catapres) 0.1 mg PO Q12H PRN PRN Reason: Restlessness Gabapentin (Neurontin) 800 mg PO TID [facility] PRN Reason: Protocol Last Admin: 04/06/17 12:25 Dose: 800 mg Hydroxyzine Pamoate (Vistaril) 50 mg PO Q8 PRN; Protocol PRN Reason: Anxiety Magnesium Hydroxide (Milk Of Magnesia) 30 ml PO DAILY PRN PRN Reason: Constipation Metoprolol Succinate (Toprol Xl) 12.5 mg PO BRK [facility] Last Admin: 04/06/17 13:47 Dose: 12.5 mg Mupirocin (Bactroban Ointment) 0 gm TOP BID [facility] Nicotine (Nicoderm Cq) 1 patch TD DAILY [facility] Paroxetine HCl (Paxil) 20 mg PO HS [facility] Quetiapine Fumarate (Seroquel) 200 mg PO HS OTTO PRN Reason: Protocol Tramadol HCl (Ultram) 50 mg PO TID PRN PRN Reason: Pain, severe (8-10) Physical Exam - Constitutional Appears: Non-toxic, No Acute Distress - Head Exam Head Exam: NORMOCEPHALIC Additional comments: self inflicted superficial wounds on face, lips and nose - Eye Exam Eye Exam: EOMI - ENT Exam ENT Exam: Mucous Membranes Moist, Normal Exam - Neck Exam Neck exam: Positive for: Normal Inspection - Respiratory Exam Respiratory Exam: Clear to Auscultation Bilateral, NORMAL BREATHING PATTERN - Cardiovascular Exam Cardiovascular Exam: REGULAR RHYTHM, RRR, +S1, +S2. absent: JVD - GI/Abdominal Exam GI & Abdominal Exam: Normal Bowel Sounds, Soft. absent: Tenderness - Extremities Exam Extremities exam: Positive for: normal inspection, tenderness (left ankle). Negative for: joint swelling, pedal edema - Back Exam Back exam: FULL ROM, NORMAL INSPECTION. absent: CVA tenderness (L), CVA tenderness (R), paraspinal tenderness, rash noted - Psychiatric Exam Psychiatric exam: Normal Affect, Normal Mood - Skin Skin Exam: Dry, Intact, Normal Color, Warm Results - Vital Signs Recent Vital Signs: Last Vital Signs Temp 98.0 F 04/06/17 07:26 Pulse 78 04/06/17 13:47 Resp 20 04/06/17 07:26 BP 132/85 04/06/17 13:47 Pulse Ox 94 L 04/05/17 21:27 - Labs Result Diagrams: 04/05/17 17:50 04/05/17 17:50 Labs: Laboratory Results - last 24 hr 04/06/17 04/06/17 07:00 07:00 Fasting Glucose 84 Triglycerides 113 Cholesterol 129 L LDL Cholesterol Direct 84 HDL Cholesterol 33 TSH 3rd Generation 1.87 Assessment & Plan - Assessment and Plan (Free Text) Plan: Depression/SI with attempt -Follow Psych recs -Seroquel 200mg -Paxil 30mg -TSH ordered -repeat labs in the AM Opioid Abuse -follow Psych recs -Pt. admits to snorting mulitple bags of heroin -Pt. also admits to acquiring methadone and oxycontin -suggest methadone 25mg today, and decreases dose the following day Hypertension -follow vitals -resume home med of Metoprolol 12.5mg CAD -ASA 81mg -Lipitor 40mg -Metoprolol 12.5mg Chronic Left Ankle Pain -Gabapentin 600mg TID - Date & Time Date: 04/06/17 Time: 03:00 <Phil Dupree - Last Filed: 04/08/17 15:09> Meds - Medications Medications: Current Medications Acetaminophen (Tylenol 325mg Tab) 650 mg PO Q4H PRN PRN Reason: Pain, Mild (1-3) Al Hydrox/Mg Hydrox/Simethicone (Maalox Plus 30 Ml) 30 ml PO DAILY PRN PRN Reason: Upset Stomach Aspirin (Aspirin Chewable) 81 mg PO DAILY [facility] Last Admin: 04/08/17 08:06 Dose: 81 mg Atorvastatin Calcium (Lipitor) 40 mg PO DIN [facility] Last Admin: 04/07/17 17:42 Dose: 40 mg Clonidine HCl (Catapres) 0.1 mg PO Q12H PRN PRN Reason: Restlessness Last Admin: 04/07/17 12:56 Dose: 0.1 mg Gabapentin (Neurontin) 800 mg PO TID [facility] PRN Reason: Protocol Last Admin: 04/08/17 12:44 Dose: 800 mg Hydroxyzine Pamoate (Vistaril) 50 mg PO Q8 PRN; Protocol PRN Reason: Anxiety Last Admin: 04/08/17 08:05 Dose: 50 mg Magnesium Hydroxide (Milk Of Magnesia) 30 ml PO DAILY PRN PRN Reason: Constipation Metoprolol Succinate (Toprol Xl) 12.5 mg PO BRK [facility] Last Admin: 04/08/17 08:05 Dose: 12.5 mg Mupirocin (Bactroban Ointment) 0 gm TOP BID [facility] Last Admin: 04/08/17 08:06 Dose: 1 applic Nicotine (Nicoderm Cq) 1 patch TD DAILY [facility] Last Admin: 04/08/17 08:04 Dose: 1 patch Paroxetine HCl (Paxil) 30 mg PO HS [facility] Last Admin: 04/07/17 21:07 Dose: 30 mg Quetiapine Fumarate (Seroquel) 200 mg PO HS [facility] PRN Reason: Protocol Last Admin: 04/07/17 21:08 Dose: 200 mg Tramadol HCl (Ultram) 50 mg PO TID PRN PRN Reason: Pain, severe (8-10) Last Admin: 05/13/17 12:46 Dose: 50 mg Zaleplon (Sonata) 5 mg PO HS PRN PRN Reason: Insomnia Results - Vital Signs Recent Vital Signs: Last Vital Signs Temp 97.5 F L 04/08/17 07:45 Pulse 66 04/08/17 08:05 Resp 20 04/08/17 07:45 BP 137/89 04/08/17 08:05 Pulse Ox 94 L 04/05/17 21:27 - Labs Result Diagrams: 04/07/17 07:30 04/07/17 07:30 Attending/Attestation - Attestation I have personally seen and examined this patient.: Yes I have fully participated in the care of the patient.: Yes I have reviewed all pertinent clinical information: Yes Notes (Text): I have seen and examined patient at bedside. Agree with the residents note dictated above with the following additions/ exceptions: Briefly this is 46 year old male with history of HTN, CAD s/p 2 stents, depression, heroine use intranasally, alcohol abuse, tobacco use, homelessness, chronic left ankle pain who got admitted for evaluation and management of depression and suicidal ideation. Manage depression as per psych recommendations. Leukocytosis noted on admission labs. Will do blood culture and procal. He does not have any suspected source of infection and denies fever and chills. Has superficial scratching of the face and for that bactroban was recommended. Counselling provided by me regarding tobacco, alcohol, opioid and benzodiazepine use. Will check tsh. Continue metoprolol, aspirin and lipitor. Upon discharge patient will follow up with PMD [facility] choice [place] [facility] [place] [facility] Phil Dupree
[2017-04-07 07:51] LABS: ADD MANUAL DIFF? NO
[2017-04-07 07:53] LABS: BASO # 0.05 K/mm3 (0.0-2.0); BASO % 0.8 % (0.0-3.0); EOS # 0.2 (0.0-0.7); EOS % 3.3 % (1.5-5.0); GRAN # 2.93 (1.4-6.5); GRAN % 48.8 % (50.0-68.0); HEMATOCRIT 39.3 % (42.0-52.0); LYMPH # 2.3 (1.2-3.4); LYMPH % 38.4 % (22.0-35.0); MEAN CELL VOLUME 88.5 fL (80.0-105.0); MEAN CORPUSCULAR HEMOGLOBIN 29.7 pg (25.0-35.0); MEAN CORPUSCULAR HGB CONC 33.6 g/dl (31.0-37.0); MEAN PLATELET VOLUME 9.8 fl (7.0-11.0); MONO # 0.5 (0.1-0.6); MONO % 8.7 % (1.0-6.0); PLATELET COUNT 221 10^3/uL (120.0-450.0); RED CELL DISTRIBUTION WIDTH 13.3 % (11.5-14.5)
[2017-04-07 08:05] LABS: ALB/GLOB RATIO 1.3 (1.1-1.8); ALKALINE PHOSPHATASE 60 U/L (38-133); ALT/SGPT 42 U/L (7-56); AST/SGOT 28 U/L (15-59); BILIRUBIN,TOTAL 0.7 mg/dL (0.2-1.3); BLOOD UREA NITROGEN 15 mg/dL (7-21); CALCIUM 8.7 mg/dL (8.4-10.5); CARBON DIOXIDE 30 mmol/L (21-33); CHLORIDE 102 mmol/L (95-110); GFR AFRICAN-AMERICAN > 60; GLUCOSE,RANDOM 90 mg/dL (70-110); SODIUM 141 mmol/L (132-148); TOTAL PROTEIN 6.8 g/dL (5.8-8.3)
[2017-04-07 08:28] LABS: T4 5.9 ug/dL (5.5-11.0)
[2017-04-07 08:42] LABS: THYROID STIMULATING HORMONE 1.03 mIU/mL (0.46-4.68)
[2017-04-07] MEDS: Metoprolol Succinate 25 mg XL Tab PO SCH (09:03)
--- NOTE | 2017-04-07 09:16 | CP.PCM.PN ---
<Francisco Hamilton - Last Filed: 04/07/17 23:41> Subjective - Date & Time of Evaluation Date of Evaluation: 04/07/17 Time of Evaluation: 08:00 - Subjective Subjective: 46M with pmh of HTN, CAD with 2 stents, and Depression, presents with SI for several days and attempting suicide by jumping in front of a bus. Today, pt. states he slept well and tolerated his diet. He complains of headache, nausea and says he is withdrawing. He denies chest pain, dyspnea, abdominal pain, vomiting or diarrhea. Objective - Vital Signs/Intake and Output Vital Signs (last 24 hours): Temp Pulse Resp BP Pulse Ox 98.0 F 70 20 118/67 94 L 04/06/17 07:26 04/07/17 09:03 04/06/17 07:26 04/07/17 09:03 04/05/17 21:27 - Medications Medications: Current Medications Acetaminophen (Tylenol 325mg Tab) 650 mg PO Q4H PRN PRN Reason: Pain, Mild (1-3) Al Hydrox/Mg Hydrox/Simethicone (Maalox Plus 30 Ml) 30 ml PO DAILY PRN PRN Reason: Upset Stomach Aspirin (Aspirin Chewable) 81 mg PO DAILY [facility] Last Admin: 04/07/17 09:01 Dose: 81 mg Atorvastatin Calcium (Lipitor) 40 mg PO DIN [facility] Last Admin: 04/06/17 17:20 Dose: 40 mg Clonidine HCl (Catapres) 0.1 mg PO Q12H PRN PRN Reason: Restlessness Gabapentin (Neurontin) 800 mg PO TID [facility] PRN Reason: Protocol Last Admin: 04/07/17 09:02 Dose: 800 mg Hydroxyzine Pamoate (Vistaril) 50 mg PO Q8 PRN; Protocol PRN Reason: Anxiety Magnesium Hydroxide (Milk Of Magnesia) 30 ml PO DAILY PRN PRN Reason: Constipation Metoprolol Succinate (Toprol Xl) 12.5 mg PO BRK [facility] Last Admin: 04/07/17 09:03 Dose: 12.5 mg Mupirocin (Bactroban Ointment) 0 gm TOP BID [facility] Last Admin: 04/07/17 09:01 Dose: 1 applic Nicotine (Nicoderm Cq) 1 patch TD DAILY [facility] Last Admin: 04/07/17 09:02 Dose: 1 patch Paroxetine HCl (Paxil) 20 mg PO HS OTTO Last Admin: 04/06/17 22:01 Dose: 20 mg Quetiapine Fumarate (Seroquel) 200 mg PO HS OTTO PRN Reason: Protocol Last Admin: 04/06/17 22:01 Dose: 200 mg Tramadol HCl (Ultram) 50 mg PO TID PRN PRN Reason: Pain, severe (8-10) Last Admin: 04/07/17 09:09 Dose: 50 mg - Labs Labs: 04/07/17 07:30 04/07/17 07:30 - Constitutional Appears: Non-toxic, No Acute Distress - Head Exam Head Exam: ATRAUMATIC, NORMOCEPHALIC - Eye Exam Eye Exam: EOMI - ENT Exam ENT Exam: Mucous Membranes Moist - Neck Exam Neck Exam: Full ROM. absent: Lymphadenopathy, Thyromegaly - Respiratory Exam Respiratory Exam: Decreased Breath Sounds, NORMAL BREATHING PATTERN. absent: Respiratory Distress - Cardiovascular Exam Cardiovascular Exam: REGULAR RHYTHM, RRR, +S1, +S2. absent: JVD - GI/Abdominal Exam GI & Abdominal Exam: Soft, Normal Bowel Sounds. absent: Tenderness - Extremities Exam Extremities Exam: absent: Joint Swelling, Pedal Edema, Tenderness - Back Exam Back Exam: NORMAL INSPECTION - Neurological Exam Neurological Exam: Alert, Awake, CN II-XII Intact, Normal Gait, Oriented x3 - Psychiatric Exam Psychiatric exam: Normal Affect, Normal Mood - Skin Skin Exam: Dry, Intact, Normal Color, Warm Assessment and Plan - Assessment and Plan (Free Text) Plan: Depression/SI with attempt -Follow Psych recs -Seroquel 200mg -Paxil 30mg -TSH ordered -repeat labs in the AM Opioid Abuse -follow Psych recs -Pt. admits to snorting mulitple bags of heroin -Pt. also admits to acquiring methadone and oxycontin -suggest methadone 25mg today, and decreases dose the following day Hypertension - stable -follow vitals -resume home med of Metoprolol 12.5mg CAD -ASA 81mg -Lipitor 40mg -Metoprolol 12.5mg Chronic Left Ankle Pain -Gabapentin 600mg TID -Tramadol 50mg TID prn will follow peripherally. l <Phil Dupree - Last Filed: 04/08/17 15:13> Objective - Vital Signs/Intake and Output Vital Signs (last 24 hours): Temp Pulse Resp BP Pulse Ox 97.5 F L 66 20 137/89 94 L 04/08/17 07:45 04/08/17 08:05 04/08/17 07:45 04/08/17 08:05 04/05/17 21:27 - Medications Medications: Current Medications Acetaminophen (Tylenol 325mg Tab) 650 mg PO Q4H PRN PRN Reason: Pain, Mild (1-3) Al Hydrox/Mg Hydrox/Simethicone (Maalox Plus 30 Ml) 30 ml PO DAILY PRN PRN Reason: Upset Stomach Aspirin (Aspirin Chewable) 81 mg PO DAILY [facility] Last Admin: 04/08/17 08:06 Dose: 81 mg Atorvastatin Calcium (Lipitor) 40 mg PO DIN [facility] Last Admin: 04/07/17 17:42 Dose: 40 mg Clonidine HCl (Catapres) 0.1 mg PO Q12H PRN PRN Reason: Restlessness Last Admin: 04/07/17 12:56 Dose: 0.1 mg Gabapentin (Neurontin) 800 mg PO TID [facility] PRN Reason: Protocol Last Admin: 04/08/17 12:44 Dose: 800 mg Hydroxyzine Pamoate (Vistaril) 50 mg PO Q8 PRN; Protocol PRN Reason: Anxiety Last Admin: 04/08/17 08:05 Dose: 50 mg Magnesium Hydroxide (Milk Of Magnesia) 30 ml PO DAILY PRN PRN Reason: Constipation Metoprolol Succinate (Toprol Xl) 12.5 mg PO BRK [facility] Last Admin: 04/08/17 08:05 Dose: 12.5 mg Mupirocin (Bactroban Ointment) 0 gm TOP BID [facility] Last Admin: 04/08/17 08:06 Dose: 1 applic Nicotine (Nicoderm Cq) 1 patch TD DAILY [facility] Last Admin: 04/08/17 08:04 Dose: 1 patch Paroxetine HCl (Paxil) 30 mg PO HS [facility] Last Admin: 04/07/17 21:07 Dose: 30 mg Quetiapine Fumarate (Seroquel) 200 mg PO HS [facility] PRN Reason: Protocol Last Admin: 04/07/17 21:08 Dose: 200 mg Tramadol HCl (Ultram) 50 mg PO TID PRN PRN Reason: Pain, severe (8-10) Last Admin: 04/08/17 12:46 Dose: 50 mg Zaleplon (Sonata) 5 mg PO HS PRN PRN Reason: Insomnia - Labs Labs: 04/07/17 07:30 04/07/17 07:30 Attending/Attestation - Attestation I have personally seen and examined this patient.: Yes I have fully participated in the care of the patient.: Yes I have reviewed all pertinent clinical information, including history, physical exam and plan: Yes Notes (Text): I have seen and examined patient at bedside. Agree with the residents note dictated above with the following additions/ exceptions: Briefly this is 46 year old male with history of HTN, CAD s/p 2 stents, depression, heroine use intranasally, alcohol abuse, tobacco use, homelessness, chronic left ankle pain who got admitted for evaluation and management of depression and suicidal ideation. Manage depression as per psych recommendations. Leukocytosis noted on admission labs. Blood culture and procal negative. He does not have any suspected source of infection and denies fever and chills. Has superficial scratching of the face and for that bactroban was given. Counselling provided by me regarding tobacco, alcohol, opioid and benzodiazepine use. Thyroid function normal. Continue metoprolol, aspirin and lipitor. Upon discharge patient will follow up with PMD of choice vs [facility] clinic. Dr Phil Dupree 04/08/17 15:13
--- NOTE | 2017-04-07 16:43 | PCM.PYCHPN ---
Psychiatric Progress Note - Psychiatric Progress Note Patient seen today, length of contact: 30 minute Patient Chief Complaint: "I cannot live like that, I need to have help, but [facility] is not for me they will work me, but all I need it is intensive therapy and a lot of support" . Problems Identified/Issues Discussed: Suicide/ homicide prevention, past psychiatric h/o, current psychiatric symptoms , medical problems, risk/benefits and alternatives of medications, medications compliance, coping strategies, substance abuse h/o, relapse prevention, importance of follow up with psychiatrist and therapist, discharge plan. Medical Problems: h/o CA, h/o bilateral ankle fracture last year, s/p left ankle surgery, pt also had chronic back pain, dyslipidemia. Diagnostic Results: 04/07/17 07:30 04/07/17 07:30 Lab Results 04/07/17 07:30: Thyroxine (T4) 5.9, TSH 3rd Generation 1.03 04/07/17 07:30: Sodium 141, Potassium 4.0, Chloride 102, Carbon Dioxide 30, Anion Gap 13, BUN 15, Creatinine 0.8, Est GFR ( Amer) > 60, Est GFR (Non- Af Amer) > 60, Random Glucose 90, Calcium 8.7, Total Bilirubin 0.7, AST 28, ALT 42, Alkaline Phosphatase 60, Total Protein 6.8, Albumin 3.8, Globulin 3.0, Albumin/Globulin Ratio 1.3 04/07/17 07:30: WBC 6.0 D, RBC 4.44, Hgb 13.2 L, Hct 39.3 L, MCV 88.5, MCH 29.7 , MCHC 33.6, RDW 13.3, Plt Count 221, MPV 9.8, Gran % 48.8 L, Lymph % (Auto) 38.4 H, [place] % (Auto) 8.7 H, Eos % (Auto) 3.3, Baso % (Auto) 0.8, Gran # 2.93, Lymph # 2.3, [place] # 0.5, Eos # 0.2, Baso # 0.05 04/06/17 12:32: Procalcitonin < 0.05 L 04/06/17 07:00: RPR Nonreactive 04/06/17 07:00: TSH 3rd Generation 1.87 04/06/17 07:00: Fasting Glucose 84, Triglycerides 113, Cholesterol 129 L, LDL Cholesterol Direct 84, HDL Cholesterol 33 04/05/17 17:50: Alcohol, Quantitative < 10 04/05/17 17:50: Salicylates < 1 L, Acetaminophen < 10.0 L 04/05/17 17:50: Urine Opiates Screen Positive H, Urine Methadone Screen Negative , Ur Barbiturates Screen Negative, Ur Phencyclidine Scrn Negative, Ur Amphetamines Screen Negative, U Benzodiazepines Scrn Positive H, U Oth Cocaine Metabols Negative, U Cannabinoids Screen Negative 04/05/17 17:50: Sodium 136, Potassium 3.8, Chloride 99, Carbon Dioxide 25, Anion Gap 16, BUN 19, Creatinine 1.0, Est GFR ( Amer) > 60, Est GFR (Non- Af Amer) > 60, Random Glucose 92, Calcium 9.3, Total Bilirubin 1.2, AST 41, ALT 43, Alkaline Phosphatase 81, Total Protein 8.5 H, Albumin 4.6, Globulin 3.9, Albumin/Globulin Ratio 1.2 04/05/17 17:50: Urine Color Yellow, Urine Appearance Clear, Urine pH 5.5, Ur Specific [place] >= 1.030, Urine Protein 30 H, Urine Glucose (UA) Negative, Urine Ketones Trace H, Urine Blood Small H, Urine Nitrate Negative, Urine Bilirubin Negative, Urine Urobilinogen 0.2, Ur Leukocyte Esterase Negative, Urine RBC 2 - 5, Urine WBC 0 - 2, Ur Epithelial Cells 1 - 3, Uric Acid Crystals Occ, Urine Bacteria Mod, Hyaline Casts 0 - 2, Urine Other Mucus 04/05/17 17:50: WBC 11.9 H D, RBC 4.69, Hgb 14.4, Hct 42.3, MCV 90.2, MCH 30.7, MCHC 34.0, RDW 13.8, Plt Count 266, MPV 9.7, Gran % 67.3, Lymph % (Auto) 21.9 L , [place] % (Auto) 8.4 H, Eos % (Auto) 1.9, Baso % (Auto) 0.5, Gran # 7.97 H, Lymph # 2.6, [place] # 1.0 H, Eos # 0.2, Baso # 0.06 Vital Signs Temp Pulse Resp BP Pulse Ox 04/07/17 16:32 66 114/72 04/07/17 12:56 80 123/7 L 04/07/17 09:31 98.4 F 70 16 118/67 04/07/17 09:03 70 118/67 04/06/17 16:00 76 118/68 04/06/17 13:47 78 132/85 04/06/17 07:26 98.0 F 78 20 132/85 04/05/17 23:37 20 04/05/17 21:27 82 16 136/80 94 L 04/05/17 19:51 98.4 F 87 18 137/88 97 04/05/17 17:58 98.1 F 93 H 18 133/92 H 95 DSM 5 Symptoms Update: Shortly pt is 46yo male with long h/o bipolar disorder, h/o polysubstance abuse and dependence , h/o multiple psychiatric admissions (most recent was less than 2 days ago in [facility]) as well as detox and rehabs in the past, poor social support, pt has multiple medical problems, pt had bilateral ankle fractures, pt also has h/o CA, dyslipidemia, pt was admitted for evaluation of possible suicidal ideation, pt stated that he wanted to end up his life by running in front of the traffic yesterday. pt was admitted for observation and r/o suicidal ideation. D/C note reviewed from [facility]. d/c meds resumed. pt was seen with the treatment team room, presented to have very bad personal hygiene, fare ADLs, presented to have anxious affect, multiple lacerations on his face (below the nose), no withdrawal symptoms, but pt claiming "I am withdrawing badly", pt was educated that he staid in [facility] for eight days and he was using heroin for two days, also pt's vitals are stable and no physical symptoms of withdrawal. Pt was educated about symptomatic tx of his possible withdrawal symptoms. pt was reluctantly receptive. pt has no clear plan for d/c, pt was having attitude of picking and choosing, for example "not all rehabs are for me, I need to have a lot of therapy and support". pt said that he still feels depressed and hopeless, denied suicidal thoughts. Patient reported no visual or distorted tactile hallucinations patient denied paranoid ideations. patient tolerates medications well, denied side effects, none observed, aims 0, no EPS. Patient is aware that this instructional writer will not prescribe opioids, no benzodiazepines. DSM 5 Diagnosis: history of bipolar disorder polysubstance abuse dependence including opioids, cocaine, benzodiazepines, alcohol Rule out substance-induced mood disorder rule out antisocial personality disorder r/o malingering Medication Change: Yes (Paxil increased) Medical Record Reviewed: Yes Consults ordered or reviewed: medical consultation appreciated Mental Status Examination - Cognitive Function Orientation: Person, Place, Situation Memory: Intact Attention: Poor Concentration: Poor Association: WNL Fund of Knowledge: WNL - Mood Mood: Depressed ("I am not doing well"), Anxious - Affect Affect: Constricted, Flat - Speech Speech: Appropriate - Formal Thought Process Formal Thought Process: No Impairment - Suicidal Ideation Suicidal Ideation: No - Homicidal Ideation Homicidal Ideation: No Goal/Treatment Plan - Goal/Treatment Plan Need for Continued Stay: Remain at risks for inpatient hospitalization, Severe depression anxiety, Discharge may exacerbated symptoms, Failed transitioning, Severe functional impairment Progress Toward Problem(s) and Goals/Treatment Plan: milieu/structure/supportive therapy Aspirin 81 mg PO DAILY resumed Atorvastatin [Lipitor] 40 mg PO DIN resumed Metoprolol Succinate [Toprol XL] 12.5 mg PO DAILY resumed Gabapentin [Neurontin] 800 mg PO TID resumed Nicotine 21 mg/24 hr [Nicoderm Cq] 1 patch TD DAILY resumed PARoxetine [Paxil] 30 mg PO DAILY resumed QUEtiapine [SEROquel] 200 mg PO HS resumed vistaril as needed 50mg po q8hrs prn for anxiety clonidine prn SW evaluation will monitor closely as per collaterals from [facility], pt refused to have aftercare plan, said that his mother is going to take him to [place] "they have better services there", pt was not suicidal prior to d/c obviously. Estimated Date of D/C: 04/11/17 (we'll monitor closely)
[2017-04-08 07:46] VITALS: RESP 20
[2017-04-08] MEDS: Metoprolol Succinate 25 mg XL Tab PO SCH (08:05)
--- NOTE | 2017-04-08 09:23 | PCM.PYCHPN ---
Psychiatric Progress Note - Psychiatric Progress Note Patient seen today, length of contact: 25 minute Patient Chief Complaint: depressed Problems Identified/Issues Discussed: I reviewed assessment and recent notes. Patient is known to me from multiple prior interviews and admissions for recurrent depression and anxiety. Patient was interviewed at bedside. He is alert and oriented x3. He presents as calm and superficially cooperative. He reports continued depression and anxiety. Affect is flat, tired and mildly irritable. He denies hallucinations and delusions were not elicited. His responses are disengaged and brief but relevant to questioning. He is compliant with medications and denies side effects. Patient denies any new discomfort or pain. Didn't sleep well last night. Nursing notes indicate that patient has kept to himself on the unit, generally not interactive. There were no behavioral issues overnight. Diagnostic Results: history of bipolar disorder polysubstance abuse dependence including opioids, cocaine, benzodiazepines, alcohol Rule out substance-induced mood disorder rule out antisocial personality disorder r/o malingering Medication Change: Yes (sonata 5 mg HS prn) Medical Record Reviewed: Yes (reports, labs, vitals, notes) Mental Status Examination - Cognitive Function Orientation: Person, Place, Situation Memory: Intact Attention: Poor Concentration: Poor Association: WNL Fund of Knowledge: WNL - Mood Mood: Depressed ("I am not doing well"), Anxious - Affect Affect: Constricted, Flat - Speech Speech: Appropriate - Formal Thought Process Formal Thought Process: No Impairment - Suicidal Ideation Suicidal Ideation: No - Homicidal Ideation Homicidal Ideation: No Goal/Treatment Plan - Goal/Treatment Plan Need for Continued Stay: Remain at risks for inpatient hospitalization, Severe depression anxiety, Discharge may exacerbated symptoms, Failed transitioning, Severe functional impairment Progress Toward Problem(s) and Goals/Treatment Plan: * c/w current tx and plan * Sonata 5 mg HS prn started on 04/08/17 for c/o insomnia * No new weekend labs * Vitals reviewed and noted below: Selected Entries 04/07/17 04/07/17 04/07/17 09:31 12:56 16:32 Temperature 98.4 F Pulse Rate 70 80 66 Respiratory 16 Rate Blood Pressure 118/67 123/7 L 114/72 Estimated Date of D/C: 04/11/17 (we'll monitor closely)
[2017-04-09] MEDS: Metoprolol Succinate 25 mg XL Tab PO SCH (08:27)
--- NOTE | 2017-04-09 09:01 | PCM.PYCHPN ---
Psychiatric Progress Note - Psychiatric Progress Note Patient seen today, length of contact: 25 minute Patient Chief Complaint: depressed Problems Identified/Issues Discussed: I reviewed recent notes and patient was interviewed at bedside. He is alert and oriented x3. He presents as calm and superficially cooperative. He continues to reports depression and anxiety. Affect is flat, tired and mildly irritable. He denies hallucinations and delusions were not elicited. His responses are disengaged and brief but relevant to questioning. He is compliant with medications and denies side effects. Patient denies any new discomfort or pain. He feels the tramadol prescribe during the day has been very beneficial for his pain. Didn't sleep well last night with Sonata. Nursing notes indicate that patient has kept to himself on the unit, generally not interactive. Demonstrates flat affect and lack of motivation. There were no behavioral issues over the weekend. Diagnostic Results: history of bipolar disorder polysubstance abuse dependence including opioids, cocaine, benzodiazepines, alcohol Rule out substance-induced mood disorder rule out antisocial personality disorder r/o malingering Medication Change: Yes (sonata increased) Medical Record Reviewed: Yes (reports, labs, vitals, notes) Mental Status Examination - Cognitive Function Orientation: Person, Place, Situation Memory: Intact Attention: Poor Concentration: Poor Association: WNL Fund of Knowledge: WNL - Mood Mood: Depressed ("I am not doing well"), Anxious - Affect Affect: Constricted, Flat - Speech Speech: Appropriate - Formal Thought Process Formal Thought Process: No Impairment - Suicidal Ideation Suicidal Ideation: No - Homicidal Ideation Homicidal Ideation: No Goal/Treatment Plan - Goal/Treatment Plan Need for Continued Stay: Remain at risks for inpatient hospitalization, Severe depression anxiety, Discharge may exacerbated symptoms, Failed transitioning, Severe functional impairment Progress Toward Problem(s) and Goals/Treatment Plan: * c/w current tx and plan * Sonata 5 mg HS prn increased to 10 mg HS on 04/09/17 for c/o insomnia * No new weekend labs * Vitals reviewed and noted below: Selected Entries 04/09/17 04/09/17 07:08 08:27 Temperature 97.9 F Pulse Rate 65 65 Respiratory 20 Rate Blood Pressure 133/71 133/75 Estimated Date of D/C: 04/11/17 (we'll monitor closely)
[2017-04-10] MEDS: Metoprolol Succinate 25 mg XL Tab PO SCH (08:37)
--- NOTE | 2017-04-10 16:12 | PCM.PYCHPN ---
Psychiatric Progress Note - Psychiatric Progress Note Patient seen today, length of contact: 30 minutes Patient Chief Complaint: "I cannot live like that, I need to go to inpatient rehabilitation" Problems Identified/Issues Discussed: Suicide/ homicide prevention, past psychiatric h/o, current psychiatric symptoms , medical problems, risk/benefits and alternatives of medications, medications compliance, coping strategies, substance abuse h/o, relapse prevention, importance of follow up with psychiatrist and therapist, discharge plan. Medical Problems: h/o MD, h/o bilateral ankle fracture last year, s/p left ankle surgery, pt also had chronic back pain, dyslipidemia. Diagnostic Results: 04/07/17 07:30 04/07/17 07:30 Lab Results 04/07/17 07:30: Thyroxine (T4) 5.9, TSH 3rd Generation 1.03 04/07/17 07:30: Sodium 141, Potassium 4.0, Chloride 102, Carbon Dioxide 30, Anion Gap 13, BUN 15, Creatinine 0.8, Est GFR ( Amer) > 60, Est GFR (Non- Af Amer) > 60, Random Glucose 90, Calcium 8.7, Total Bilirubin 0.7, AST 28, ALT 42, Alkaline Phosphatase 60, Total Protein 6.8, Albumin 3.8, Globulin 3.0, Albumin/Globulin Ratio 1.3 04/07/17 07:30: WBC 6.0 D, RBC 4.44, Hgb 13.2 L, Hct 39.3 L, MCV 88.5, MCH 29.7 , MCHC 33.6, RDW 13.3, Plt Count 221, MPV 9.8, Gran % 48.8 L, Lymph % (Auto) 38.4 H, [place] % (Auto) 8.7 H, Eos % (Auto) 3.3, Baso % (Auto) 0.8, Gran # 2.93, Lymph # 2.3, [place] # 0.5, Eos # 0.2, Baso # 0.05 04/06/17 12:32: Procalcitonin < 0.05 L 04/06/17 07:00: RPR Nonreactive 04/06/17 07:00: TSH 3rd Generation 1.87 04/06/17 07:00: Fasting Glucose 84, Triglycerides 113, Cholesterol 129 L, LDL Cholesterol Direct 84, HDL Cholesterol 33 04/05/17 17:50: Alcohol, Quantitative < 10 04/05/17 17:50: Salicylates < 1 L, Acetaminophen < 10.0 L 04/05/17 17:50: Urine Opiates Screen Positive H, Urine Methadone Screen Negative , Ur Barbiturates Screen Negative, Ur Phencyclidine Scrn Negative, Ur Amphetamines Screen Negative, U Benzodiazepines Scrn Positive H, U Oth Cocaine Metabols Negative, U Cannabinoids Screen Negative 04/05/17 17:50: Sodium 136, Potassium 3.8, Chloride 99, Carbon Dioxide 25, Anion Gap 16, BUN 19, Creatinine 1.0, Est GFR ( Amer) > 60, Est GFR (Non- Af Amer) > 60, Random Glucose 92, Calcium 9.3, Total Bilirubin 1.2, AST 41, ALT 43, Alkaline Phosphatase 81, Total Protein 8.5 H, Albumin 4.6, Globulin 3.9, Albumin/Globulin Ratio 1.2 04/05/17 17:50: Urine Color Yellow, Urine Appearance Clear, Urine pH 5.5, Ur Specific [place] >= 1.030, Urine Protein 30 H, Urine Glucose (UA) Negative, Urine Ketones Trace H, Urine Blood Small H, Urine Nitrate Negative, Urine Bilirubin Negative, Urine Urobilinogen 0.2, Ur Leukocyte Esterase Negative, Urine RBC 2 - 5, Urine WBC 0 - 2, Ur Epithelial Cells 1 - 3, Uric Acid Crystals Occ, Urine Bacteria Mod, Hyaline Casts 0 - 2, Urine Other Mucus 04/05/17 17:50: WBC 11.9 H D, RBC 4.69, Hgb 14.4, Hct 42.3, MCV 90.2, MCH 30.7, MCHC 34.0, RDW 13.8, Plt Count 266, MPV 9.7, Gran % 67.3, Lymph % (Auto) 21.9 L , [place] % (Auto) 8.4 H, Eos % (Auto) 1.9, Baso % (Auto) 0.5, Gran # 7.97 H, Lymph # 2.6, [place] # 1.0 H, Eos # 0.2, Baso # 0.06 Vital Signs Temp Pulse Resp BP Pulse Ox 04/07/17 16:32 66 114/72 04/07/17 12:56 80 123/7 L 04/07/17 09:31 98.4 F 70 16 118/67 05/12/17 09:03 70 118/67 04/06/17 16:00 76 118/68 04/06/17 13:47 78 132/85 04/06/17 07:26 98.0 F 78 20 132/85 04/05/17 23:37 20 04/05/17 21:27 82 16 136/80 94 L 04/05/17 19:51 98.4 F 87 18 137/88 97 04/05/17 17:58 98.1 F 93 H 18 133/92 H 95 Temp Pulse Resp BP Pulse Ox 98.2 F 78 20 133/85 94 L 04/10/17 06:54 04/10/17 15:56 04/10/17 06:54 04/10/17 15:56 04/05/17 21:27 DSM 5 Symptoms Update: Shortly pt is 46yo male with long h/o bipolar disorder, h/o polysubstance abuse and dependence , h/o multiple psychiatric admissions (most recent was less than 2 days ago in [facility]) as well as detox and rehabs in the past, poor social support, pt has multiple medical problems, pt had bilateral ankle fractures, pt also has h/o MD, dyslipidemia, pt was admitted for evaluation of possible suicidal ideation, pt stated that he wanted to end up his life by running in front of the traffic yesterday. pt was admitted for observation and r/o suicidal ideation. pt was seen next to the nursing station, personal hygiene much improved, presented better to compare with the previous week. As per staff patient is pleasant, corporative, no behavioral issues, at the same time patient is refusing to attend groups, self isolating. Going back to the patient presentation patient reported that she is "glad that you didn't start any pain medications or benzodiazepines", patient reported over the weekend she started to call to rehabilitation places but with no success. Patient reported that "I need to straighten my life, I cannot do it for myself anymore, I need to get better, I need to go to inpatient rehabilitation". Patient reported that he feels more hopeful for the future, reported that his depression and anxiety slowly improving. pt denied suicidal or homicidal ideation, denied intent or plan. no psychotic symptoms observed or reported. patient tolerates medications well, denied side effects, none observed, aims 0, no EPS. DSM 5 Diagnosis: history of bipolar disorder polysubstance abuse dependence including opioids, cocaine, benzodiazepines, alcohol Rule out substance-induced mood disorder rule out antisocial personality disorder r/o malingering Medication Change: Yes (sonata increased) Medical Record Reviewed: Yes (reports, labs, vitals, notes) Consults ordered or reviewed: medical consultation appreciated Mental Status Examination - Cognitive Function Orientation: Person, Place, Situation Memory: Intact Attention: Poor (ome improvement) Concentration: Poor (some improvement) Association: WNL Fund of Knowledge: WNL - Mood Mood: Depressed ("I feel little better, hanging in there"), Anxious - Affect Affect: Constricted - Speech Speech: Appropriate - Formal Thought Process Formal Thought Process: No Impairment - Suicidal Ideation Suicidal Ideation: No - Homicidal Ideation Homicidal Ideation: No Goal/Treatment Plan - Goal/Treatment Plan Need for Continued Stay: Remain at risks for inpatient hospitalization, Severe depression anxiety, Discharge may exacerbated symptoms, Failed transitioning, Severe functional impairment Progress Toward Problem(s) and Goals/Treatment Plan: milieu/structure/supportive therapy Aspirin 81 mg PO DAILY resumed Atorvastatin [Lipitor] 40 mg PO DIN resumed Metoprolol Succinate [Toprol XL] 12.5 mg PO DAILY resumed Gabapentin [Neurontin] 800 mg PO TID resumed Nicotine 21 mg/24 hr [Nicoderm Cq] 1 patch TD DAILY resumed PARoxetine will be increased to 40 mg PO at the nighttime for depression and anxiety QUEtiapine [SEROquel] 200 mg PO HS resumed vistaril as needed 50mg po q8hrs prn for anxiety clonidine prn evaluation will monitor closely as per collaterals from [facility], pt refused to have aftercare plan, said that his mother is going to take him to [place] "they have better services there", pt was not suicidal prior to d/c obviously. Estimated Date of D/C: 04/11/17 (we'll monitor closely)
[2017-04-10] MEDS ORDERED: Bacitracin 500 Units/gm Oint Foilpak UD ONE (17:50)
[2017-04-11] MEDS: Metoprolol Succinate 25 mg XL Tab PO SCH (08:45)
--- NOTE | 2017-04-11 15:05 | PCM.PYCHPN ---
Psychiatric Progress Note - Psychiatric Progress Note Patient seen today, length of contact: 30 minutes Patient Chief Complaint: "I feel I have a chance to stay sober..." Problems Identified/Issues Discussed: Suicide/ homicide prevention, past psychiatric h/o, current psychiatric symptoms , medical problems, risk/benefits and alternatives of medications, medications compliance, coping strategies, substance abuse h/o, relapse prevention, importance of follow up with psychiatrist and therapist, discharge plan. Medical Problems: h/o MN, h/o bilateral ankle fracture last year, s/p left ankle surgery, pt also had chronic back pain, dyslipidemia. Diagnostic Results: 04/07/17 07:30 04/07/17 07:30 Lab Results 04/07/17 07:30: Thyroxine (T4) 5.9, TSH 3rd Generation 1.03 04/07/17 07:30: Sodium 141, Potassium 4.0, Chloride 102, Carbon Dioxide 30, Anion Gap 13, BUN 15, Creatinine 0.8, Est GFR ( Amer) > 60, Est GFR (Non- Af Amer) > 60, Random Glucose 90, Calcium 8.7, Total Bilirubin 0.7, AST 28, ALT 42, Alkaline Phosphatase 60, Total Protein 6.8, Albumin 3.8, Globulin 3.0, Albumin/Globulin Ratio 1.3 04/07/17 07:30: WBC 6.0 D, RBC 4.44, Hgb 13.2 L, Hct 39.3 L, MCV 88.5, MCH 29.7 , MCHC 33.6, RDW 13.3, Plt Count 221, MPV 9.8, Gran % 48.8 L, Lymph % (Auto) 38.4 H, [place] % (Auto) 8.7 H, Eos % (Auto) 3.3, Baso % (Auto) 0.8, Gran # 2.93, Lymph # 2.3, [place] # 0.5, Eos # 0.2, Baso # 0.05 04/06/17 12:32: Procalcitonin < 0.05 L 04/06/17 07:00: RPR Nonreactive 04/06/17 07:00: TSH 3rd Generation 1.87 04/06/17 07:00: Fasting Glucose 84, Triglycerides 113, Cholesterol 129 L, LDL Cholesterol Direct 84, HDL Cholesterol 33 04/05/17 17:50: Alcohol, Quantitative < 10 04/05/17 17:50: Salicylates < 1 L, Acetaminophen < 10.0 L 04/05/17 17:50: Urine Opiates Screen Positive H, Urine Methadone Screen Negative , Ur Barbiturates Screen Negative, Ur Phencyclidine Scrn Negative, Ur Amphetamines Screen Negative, U Benzodiazepines Scrn Positive H, U Oth Cocaine Metabols Negative, U Cannabinoids Screen Negative 04/05/17 17:50: Sodium 136, Potassium 3.8, Chloride 99, Carbon Dioxide 25, Anion Gap 16, BUN 19, Creatinine 1.0, Est GFR ( Amer) > 60, Est GFR (Non- Af Amer) > 60, Random Glucose 92, Calcium 9.3, Total Bilirubin 1.2, AST 41, ALT 43, Alkaline Phosphatase 81, Total Protein 8.5 H, Albumin 4.6, Globulin 3.9, Albumin/Globulin Ratio 1.2 04/05/17 17:50: Urine Color Yellow, Urine Appearance Clear, Urine pH 5.5, Ur Specific [place] >= 1.030, Urine Protein 30 H, Urine Glucose (UA) Negative, Urine Ketones Trace H, Urine Blood Small H, Urine Nitrate Negative, Urine Bilirubin Negative, Urine Urobilinogen 0.2, Ur Leukocyte Esterase Negative, Urine RBC 2 - 5, Urine WBC 0 - 2, Ur Epithelial Cells 1 - 3, Uric Acid Crystals Occ, Urine Bacteria Mod, Hyaline Casts 0 - 2, Urine Other Mucus 04/05/17 17:50: WBC 11.9 H D, RBC 4.69, Hgb 14.4, Hct 42.3, MCV 90.2, MCH 30.7, MCHC 34.0, RDW 13.8, Plt Count 266, MPV 9.7, Gran % 67.3, Lymph % (Auto) 21.9 L , [place] % (Auto) 8.4 H, Eos % (Auto) 1.9, Baso % (Auto) 0.5, Gran # 7.97 H, Lymph # 2.6, [place] # 1.0 H, Eos # 0.2, Baso # 0.06 Vital Signs Temp Pulse Resp BP Pulse Ox 04/07/17 16:32 66 114/72 04/07/17 12:56 80 123/7 L 04/07/17 09:31 98.4 F 70 16 118/67 05/12/17 09:03 70 118/67 04/06/17 16:00 76 118/68 04/06/17 13:47 78 132/85 04/06/17 07:26 98.0 F 78 20 132/85 04/05/17 23:37 20 04/05/17 21:27 82 16 136/80 94 L 04/05/17 19:51 98.4 F 87 18 137/88 97 04/05/17 17:58 98.1 F 93 H 18 133/92 H 95 Temp Pulse Resp BP Pulse Ox 98.2 F 78 20 133/85 94 L 04/10/17 06:54 04/10/17 15:56 04/10/17 06:54 04/10/17 15:56 04/05/17 21:27 Temp Pulse Resp BP Pulse Ox 98.1 F 70 20 133/87 94 L 04/11/17 07:42 04/11/17 08:46 04/11/17 07:42 04/11/17 08:46 04/05/17 21:27 DSM 5 Symptoms Update: Shortly pt is 46yo male with long h/o bipolar disorder, h/o polysubstance abuse and dependence , h/o multiple psychiatric admissions (most recent was less than 2 days ago in [facility]) as well as detox and rehabs in the past, poor social support, pt has multiple medical problems, pt had bilateral ankle fractures, pt also has h/o [place], dyslipidemia, pt was admitted for evaluation of possible suicidal ideation, pt stated that he wanted to end up his life by running in front of the traffic yesterday. pt was admitted for observation and r/o suicidal ideation. pt was seen at the dinning area, personal hygiene much improved, presented better to compare with the previous week. As per staff patient is pleasant, corporative, no behavioral issues, started to go to groups. pt said that he is more hopeful, pt said that he wants to stay with his mother and he is looking for d/c tomorrow. Pt said his mood "much better", pt denied thoughts of harming self or others. no psychotic symptoms observed or reported. patient tolerates medications well, denied side effects, none observed, aims 0, no EPS. DSM 5 Diagnosis: history of bipolar disorder polysubstance abuse dependence including opioids, cocaine, benzodiazepines, alcohol Rule out substance-induced mood disorder rule out antisocial personality disorder r/o malingering Medication Change: No (increased paxil yesterday) Medical Record Reviewed: Yes (reports, labs, vitals, notes) Consults ordered or reviewed: medical consultation appreciated Mental Status Examination - Cognitive Function Orientation: Person, Place, Situation Memory: Intact Attention: WNL Concentration: WNL Association: WNL Fund of Knowledge: WNL - Mood Mood: Depressed ("better") - Affect Affect: Constricted (more reactive, mood congruent) - Speech Speech: Appropriate - Formal Thought Process Formal Thought Process: No Impairment - Suicidal Ideation Suicidal Ideation: No - Homicidal Ideation Homicidal Ideation: No Goal/Treatment Plan - Goal/Treatment Plan Need for Continued Stay: Remain at risks for inpatient hospitalization, Severe depression anxiety, Discharge may exacerbated symptoms, Failed transitioning, Severe functional impairment Progress Toward Problem(s) and Goals/Treatment Plan: milieu/structure/supportive therapy Aspirin 81 mg PO DAILY resumed Atorvastatin [Lipitor] 40 mg PO DIN resumed Metoprolol Succinate [Toprol XL] 12.5 mg PO DAILY resumed Gabapentin [Neurontin] 800 mg PO TID resumed Nicotine 21 mg/24 hr [Nicoderm Cq] 1 patch TD DAILY resumed PARoxetine 40 mg PO at the nighttime for depression and anxiety QUEtiapine [SEROquel] 200 mg PO HS resumed vistaril as needed 50mg po q8hrs prn for anxiety clonidine prn evaluation will monitor closely as per collaterals from [facility], pt refused to have aftercare plan, said that his mother is going to take him to [place] "they have better services there", pt was not suicidal prior to d/c obviously. Estimated Date of D/C: 04/12/17 (we'll monitor closely)
[2017-04-12 07:24] VITALS: BP 117/78; PULSE 60; TEMP 98
[2017-04-12] MEDS: Metoprolol Succinate 25 mg XL Tab PO SCH (08:03)
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
== END 2017-04-12 12:04 | disposition home or self-care (01) | DRG 745 ==
LOC: ED 17:19 → ERH 20:32 → PSYC 21:34
PROVIDERS: ADMIT Psychiatry & Neurology Psychiatry; ATTEND Psychiatry & Neurology Psychiatry
PROC: GZ3ZZZZ Medication Management (ICD-10-PCS; principal; 2017-04-05)
DX: F15.24 Other stimulant dependence with stimulant-induced mood disorder (principal); F15.280 Other stimulant dependence with stimulant-induced anxiety disorder; F11.20 Opioid dependence, uncomplicated; F10.20 Alcohol dependence, uncomplicated; F14.20 Cocaine dependence, uncomplicated; R45.851 Suicidal ideations; F13.20 Sedative, hypnotic or anxiolytic dependence, uncomplicated; F31.9 Bipolar disorder, unspecified; I10 Essential (primary) hypertension; I25.10 Atherosclerotic heart disease of native coronary artery without angina pectoris; M25.572 Pain in left ankle and joints of left foot; G89.29 Other chronic pain; E78.5 Hyperlipidemia, unspecified; M54.9 Dorsalgia, unspecified; F17.210 Nicotine dependence, cigarettes, uncomplicated; Z59.0 Homelessness; I25.2 Old myocardial infarction; Z95.5 Presence of coronary angioplasty implant and graft; Z80.9 Family history of malignant neoplasm, unspecified

== ENCOUNTER 2017-05-06 09:32 | Inpatient (IN) | payer MEDICAID ==
[2017-05-06 09:33] VITALS: BMI 32.3
[2017-05-06 09:37] VITALS: O2SAT 96
--- NOTE | 2017-05-06 09:46 | ED PDOC ---
Arrival/HPI - General Chief Complaint: Psychiatric Evaluation Time Seen by Provider: 05/06/17 09:37 Historian: Patient, Other ([facility] medical records) - History of Present Illness Narrative History of Present Illness (Text): 05/06/17 09:38 A 46 year old male who is transfer from [facility] for psychiatric admission. Review of records and interviewing patient reveal that he patient presented to [facility] on 05/05/17 for depression, suicidal ideation and had a suicidal plan which he did not act out on. Patient denied any homicidal ideation. He denies any overdose or trauma. Currently patient denies any headache, chest pain, shortness of breath or other complaints. Past Medical History - Provider Review Nursing Documentation Reviewed: Yes - Past History Past History: No Previous - Infectious Disease Hx of Infectious Diseases: None - Tetanus Immunization Tetanus Immunization: Up to Date - Cardiac Hx Hypertension: Yes - Neurological Hx Seizures: No - HEENT Hx HEENT Disorder: No - Endocrine/Metabolic Hx Hypothyroidism: No - Hematological/Oncological Hx Blood Disorders: No - Integumentary Hx Dermatological Disorder: No - Musculoskeletal/Rheumatological Hx Fractures: Yes (left leg splint-FX OF LEFT FEMUR FROM FALL) - Gastrointestinal Hx Gastrointestinal Disorders: No - Genitourinary/Gynecological Hx Sexually Transmitted Diseases: No - Psychiatric Hx Anxiety: Yes Hx Bipolar Disorder: Yes Hx Depression: Yes Hx Substance Use: Yes - Past Surgical History Past Surgical History: No Previous - Surgical History Hx Appendectomy: Yes (at age 16) Hx Coronary Stent: Yes (x2 RCA 2013) - Anesthesia Hx Anesthesia: Yes Hx Anesthesia Reactions: No - Suicidal Assessment Feels Threatened In Home Enviroment: No Family/Social History - Physician Review Nursing Documentation Reviewed: Yes Family/Social History: Unknown Family HX Smoking Status: Heavy Smoker > 10 Cigarettes Daily Hx Alcohol Use: No Hx Substance Use: Yes Substance used: heroin Hx Substance Use Treatment: No Allergies/Home Meds Allergies/Adverse Reactions: Allergies FISH Allergy (Intermediate, Verified 05/05/17 23:25) RASH Home Medications: Home Meds Medication Instructions Recorded Confirmed Gabapentin [Neurontin] 800 mg PO TID 05/06/17 05/06/17 QUEtiapine [SEROquel] 200 mg PO HS 05/06/17 05/06/17 Review of Systems - Review of Systems Constitutional: absent: Fevers Eyes: absent: Vision Changes ENT: absent: Rhinorrhea Respiratory: absent: SOB, Cough Cardiovascular: absent: Chest Pain Gastrointestinal: absent: Abdominal Pain Genitourinary Male: absent: Dysuria Musculoskeletal: absent: Back Pain, Neck Pain Skin: absent: Rash Neurological: absent: Headache, Dizziness, Focal Weakness Endocrine: absent: Polyuria Psychiatric: Depression, Suicidal Ideation (with plan) Physical Exam - Physical Exam Narrative Physical Exam (Text): Head: Atraumatic. Normocephalic. Eyes: PERRL. EOMI. Conjunctivae are not pale. ENT: Mucous membranes are moist and intact. Oropharynx is clear and symmetric. Neck: Supple. Full ROM. No JVD. No lymphadenopathy. Cardiovascular: Regular rate. Regular rhythm. No murmurs, rubs, or gallops. Distal pulses are 2+ and symmetric. Pulmonary/Chest: No evidence of respiratory distress. Clear to auscultation bilaterally. No wheezing, rales or rhonchi. Abdominal: Soft and non-distended. There is no tenderness. No rebound, guarding, or rigidity. No organomegaly. Good bowel sounds. Back: No CVA tenderness. Extremities: No edema. No cyanosis. No clubbing. Full range of motion in all extremities. No calf tenderness. Skin: Skin is warm and dry. No petechiae. No purpura. Neurological: Alert, awake, and oriented to person, place, time, and situation. Normal speech. No facial droop. No focal motor deficits. Visual acuity and castro intact. Psychiatric: Depressed. Suicidal ideation. 05/06/17 15:39 Vital Signs Reviewed: Yes Vital Signs Temp Pulse Resp BP Pulse Ox 05/06/17 09:35 98.2 F 84 16 118/55 L 96 Temperature: Afebrile Blood Pressure: Hypotensive Pulse: Regular Respiratory Rate: Normal Appearance: Positive for: Well-Appearing, Non-Toxic, Comfortable Pain Distress: None Mental Status: Positive for: Alert and Oriented X 3 Medical Decision Making ED Course and Treatment: 05/06/17 09:38 The patient is a 46 year old male who is transferred from [facility] for admission. The patient was medical cleared at [facility] prior to transfer. I have reviewed the patient's labs, EKG and Chest X-ray. Patient currently has no sign of respiratory distress or cardiovascular instability. Patient is awake and alert. He is not tremulous or tachycardia. Will admit patient to behavioral health. I recommend medical consultation because the patient has a past history of substance abuse, although patient has not physical complaints at this time. - Medication Orders Current Medication Orders: Acetaminophen (Tylenol 325mg Tab) 650 mg PO Q6H PRN PRN Reason: moderate pain and fever >100.3 Aspirin (Aspirin Chewable) 81 mg PO DAILY [facility] Last Admin: 05/06/17 13:33 Dose: 81 mg Atorvastatin Calcium (Lipitor) 40 mg PO DIN [facility] Clonidine HCl (Catapres) 0.1 mg PO BID PRN PRN Reason: opioid withdrawals Gabapentin (Neurontin) 100 mg PO TID [facility] PRN Reason: Protocol Last Admin: 05/06/17 13:33 Dose: 100 mg Hydroxyzine Pamoate (Vistaril) 50 mg PO Q8 PRN; Protocol PRN Reason: Anxiety Last Admin: 05/06/17 13:33 Dose: 50 mg Loperamide HCl (Imodium) 2 mg PO QID PRN PRN Reason: Diarrhea Lorazepam (Ativan) 2 mg PO QID [facility] PRN Reason: Protocol Last Admin: 05/06/17 13:33 Dose: 2 mg Metoprolol Succinate (Toprol Xl) 12.5 mg PO BRK [facility] Multivitamins (Thera Tab) 1 tab PO DAILY [facility] Nicotine (Nicoderm Cq) 1 patch TD DAILY [facility] Quetiapine Fumarate (Seroquel) 100 mg PO HS [facility] PRN Reason: Protocol Tramadol HCl (Ultram) 50 mg PO TID PRN PRN Reason: pain, severe 07/06 Last Admin: 05/06/17 13:33 Dose: 50 mg - Scribe Statement The provider has reviewed the documentation as recorded by the Sudhakar Mccann Provider Scribe Attestation: All medical record entries made by the Sudhakar were at my direction and personally dictated by me. I have reviewed the chart and agree that the record accurately reflects my personal performance of the history, physical exam, medical decision making, and the department course for this patient. I have also personally directed, reviewed, and agree with the discharge instructions and disposition. Disposition/Present on Arrival - Present on Arrival Any Indicators Present on Arrival: No History of DVT/PE: No History of Uncontrolled Diabetes: No Urinary Catheter: No History of Decub. Ulcer: No History Surgical Site Infection Following: None - Disposition Have Diagnosis and Disposition been Completed?: Yes Diagnosis: Depression Disposition: HOSPITALIZED Disposition Time: 09:38 Patient Plan: Admission Condition: SERIOUS
[2017-05-06 12:22] LABS: ADD MANUAL DIFF? NO
[2017-05-06 12:29] LABS: BASO # 0.03 K/mm3 (0.0-2.0); BASO % 0.4 % (0.0-3.0); EOS # 0.2 (0.0-0.7); EOS % 3.1 % (1.5-5.0); GRAN # 4.82 (1.4-6.5); GRAN % 64.7 % (50.0-68.0); HEMATOCRIT 39.1 % (42.0-52.0); LYMPH # 1.8 (1.2-3.4); LYMPH % 23.9 % (22.0-35.0); MEAN CELL VOLUME 90.7 fL (80.0-105.0); MEAN CORPUSCULAR HEMOGLOBIN 31.1 pg (25.0-35.0); MEAN CORPUSCULAR HGB CONC 34.3 g/dl (31.0-37.0); MEAN PLATELET VOLUME 8.7 fl (7.0-11.0); MONO # 0.6 (0.1-0.6); MONO % 7.9 % (1.0-6.0); PLATELET COUNT 278 10^3/uL (120.0-450.0); RED CELL DISTRIBUTION WIDTH 13.8 % (11.5-14.5); WHITE BLOOD COUNT 7.5 10^3/ul (4.5-11.0)
[2017-05-06 12:39] LABS: ALB/GLOB RATIO 1.1 (1.1-1.8); ALKALINE PHOSPHATASE 57 U/L (38-133); ALT/SGPT 56 U/L (7-56); AST/SGOT 50 U/L (15-59); BILIRUBIN,TOTAL 1.4 mg/dL (0.2-1.3); BLOOD UREA NITROGEN 16 mg/dL (7-21); CALCIUM 8.9 mg/dL (8.4-10.5); CARBON DIOXIDE 25 mmol/L (21-33); CHLORIDE 102 mmol/L (98-107); CHOLESTEROL 277 mg/dL (130-200); GFR AFRICAN-AMERICAN > 60; GLUCOSE,FASTING 79 mg/dL (65-110); GLUCOSE,RANDOM 79 mg/dL (70-110); POTASSIUM 4.2 mmol/L (3.6-5.0); SODIUM 137 mmol/L (132-148); TOTAL PROTEIN 7.9 g/dL (5.8-8.3)
[2017-05-06 12:51] LABS: FREE T4 0.92 ng/dL (0.78-2.19)
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
[2017-05-06 13:05] LABS: THYROID STIMULATING HORMONE 2.22 mIU/mL (0.46-4.68)
[2017-05-07 06:44] VITALS: RESP 20; TEMP 98.1
--- NOTE | 2017-05-07 07:24 | CP.PCM.PN ---
Objective - Vital Signs/Intake and Output Vital Signs (last 24 hours): Temp Pulse Resp BP Pulse Ox 98.1 F 77 20 110/69 96 05/07/17 06:43 05/07/17 06:43 05/07/17 06:43 05/07/17 06:43 05/06/17 09:35 - Medications Medications: Current Medications Acetaminophen (Tylenol 325mg Tab) 650 mg PO Q6H PRN PRN Reason: moderate pain and fever >100.3 Aspirin (Aspirin Chewable) 81 mg PO DAILY [facility] Last Admin: 05/06/17 13:33 Dose: 81 mg Atorvastatin Calcium (Lipitor) 40 mg PO DIN [facility] Last Admin: 05/06/17 17:09 Dose: 40 mg Clonidine HCl (Catapres) 0.1 mg PO BID PRN PRN Reason: opioid withdrawals Gabapentin (Neurontin) 100 mg PO TID [facility] PRN Reason: Protocol Last Admin: 05/06/17 17:09 Dose: 100 mg Hydroxyzine Pamoate (Vistaril) 50 mg PO Q8 PRN; Protocol PRN Reason: Anxiety Last Admin: 05/06/17 13:33 Dose: 50 mg Loperamide HCl (Imodium) 2 mg PO QID PRN PRN Reason: Diarrhea Lorazepam (Ativan) 2 mg PO QID [facility] PRN Reason: Protocol Last Admin: 05/06/17 21:55 Dose: 2 mg Metoprolol Succinate (Toprol Xl) 12.5 mg PO BRK [facility] Multivitamins (Thera Tab) 1 tab PO DAILY [facility] Nicotine (Nicoderm Cq) 1 patch TD DAILY [facility] Quetiapine Fumarate (Seroquel) 100 mg PO HS [facility] PRN Reason: Protocol Last Admin: 05/06/17 21:54 Dose: 100 mg Tramadol HCl (Ultram) 50 mg PO TID PRN PRN Reason: pain, severe 07/06 Last Admin: 05/06/17 21:58 Dose: 50 mg - Labs Labs: 05/06/17 12:00 05/06/17 12:00
[2017-05-07] MEDS: Metoprolol Succinate 25 mg XL Tab PO SCH (08:38)
[2017-05-07] MEDS: Multivitamin Therapeutic Tab PO SCH (08:38)
--- NOTE | 2017-05-07 11:41 | PCM.PYCHPN ---
Psychiatric Progress Note - Psychiatric Progress Note Patient seen today, length of contact: 30 minutes Patient Chief Complaint: " I don't feel well" Problems Identified/Issues Discussed: Suicide/ homicide prevention, past psychiatric h/o, current psychiatric symptoms , medical problems, risk/benefits and alternatives of medications, medications compliance, coping strategies, substance abuse h/o, relapse prevention, importance of follow up with psychiatrist and therapist, discharge plan. Medical Problems: h/o [place], h/o bilateral ankle fracture last year, s/p left ankle surgery, pt also had chronic back pain, dyslipidemia. Diagnostic Results: 05/06/17 12:00 05/06/17 12:00 Lab Results 05/06/17 12:00: Free T4 0.92, TSH 3rd Generation 2.22 05/06/17 12:00: Sodium 137, Potassium 4.2, Chloride 102, Carbon Dioxide 25, Anion Gap 14, BUN 16, Creatinine 0.8, Est GFR ( Amer) > 60, Est GFR (Non- Af Amer) > 60, Random Glucose 79, Fasting Glucose 79, Calcium 8.9, Total Bilirubin 1.4 H, AST 50, ALT 56, Alkaline Phosphatase 57, Total Protein 7.9, Albumin 4.2, Globulin 3.7, Albumin/Globulin Ratio 1.1, Triglycerides 136, Cholesterol 277 H, LDL Cholesterol Direct 245 H, HDL Cholesterol 32 05/06/17 12:00: WBC 7.5 D, RBC 4.31, Hgb 13.4 L, Hct 39.1 L, MCV 90.7, MCH 31.1 , MCHC 34.3, RDW 13.8, Plt Count 278, MPV 8.7, Gran % 64.7, Lymph % (Auto) 23.9 , [place] % (Auto) 7.9 H, Eos % (Auto) 3.1, Baso % (Auto) 0.4, Gran # 4.82, Lymph # 1.8, [place] # 0.6, Eos # 0.2, Baso # 0.03 Vital Signs Temp Pulse Resp BP Pulse Ox 05/07/17 06:43 98.1 F 77 20 110/69 05/06/17 16:00 94 H 113/74 05/06/17 09:35 98.2 F 84 16 118/55 L 96 DSM 5 Symptoms Update: Shortly pt is 46yo male with long h/o bipolar disorder, h/o polysubstance abuse and dependence , h/o multiple psychiatric admissions (most recent was 04/05/17 from this facility) as well as detox and rehabs in the past, poor social support , pt has multiple medical problems, pt had bilateral ankle fractures in the past , chronic pain, pt also has h/o [place], dyslipidemia, pt was transferred from [facility] for evaluation of possible suicidal ideation, pt stated that he wanted to end up his life by jumping in front of the bus, but was saved by bystander, was on 1:1 observation in [facility] ED pt was admitted for observation and r/o suicidal ideation. patient was seen in his room, patient appears to be withdrawn, flat affect, poor eye contact, slurred speech, appears to be depressed or some psychomotor retardation. aas per staff patient is not interested to go to unit groups, compliant with the medications, fixated on pain meds medication as well as anxiety latex, appears to be depressed, no behavioral incidents. Patient tolerates medications well, no side effects observed or reported, aims 0 , no EPS. Impression: DSM 5 Diagnosis: history of bipolar disorder polysubstance abuse dependence including opioids, cocaine, benzodiazepines, alcohol Rule out substance-induced mood disorder rule out antisocial personality disorder Medication Change: Yes (medications resumed yesterday) Medical Record Reviewed: Yes Consults ordered or reviewed: medical consult appreciated Mental Status Examination - Cognitive Function Orientation: Person, Place, Situation, Time Memory: Intact Attention: Poor Concentration: Poor Association: Loose Fund of Knowledge: Poor - Mood Mood: Depressed, Anxious - Affect Affect: Constricted, Flat - Speech Speech: Appropriate - Formal Thought Process Formal Thought Process: No Impairment - Suicidal Ideation Suicidal Ideation: No - Homicidal Ideation Homicidal Ideation: No Goal/Treatment Plan - Goal/Treatment Plan Need for Continued Stay: Remain at risks for inpatient hospitalization, Severe depression anxiety, Discharge may exacerbated symptoms, Failed transitioning, Severe functional impairment Progress Toward Problem(s) and Goals/Treatment Plan: milieu/structure/supportive therapy Aspirin 81 mg PO DAILY resumed Atorvastatin [Lipitor] 40 mg PO DIN resumed Metoprolol Succinate [Toprol XL] 12.5 mg PO DAILY resumed Gabapentin [Neurontin] 100 mg PO TID resumed Nicotine 21 mg/24 hr [Nicoderm Cq] 1 patch TD DAILY resumed PARoxetine will be considered QUEtiapine [SEROquel] 100 mg PO HS resumed vistaril as needed 50mg po q8hrs prn for anxiety clonidine prn tramadol for pain tylenol for pain immodium for diarrhea due to opioid withdrawals medical consult SW evaluation will monitor closely from this account underwriter impression pt needs to go to the inpatient rehab, pt has strong addiction to benzodiazepines and opioids, high risk of accidental overdose, but not intentional suicide. Pt is aware of that. Estimated Date of D/C: 05/12/17 (we will monitor closely)
[2017-05-07 12:37] LABS: PH,URINE >=9.0 (4.7-8.0); URINE BILIRUBIN NEGATIVE (NEGATIVE); URINE BLOOD NEGATIVE (NEGATIVE); URINE GLUCOSE (UA) NEGATIVE (NEGATIVE); URINE KETONE NEGATIVE (NEGATIVE); URINE LEUKOCYTE ESTERASE NEGATIVE Leu/uL (NEGATIVE)
[2017-05-07 12:39] LABS: URINE APPEARANCE CLEAR (CLEAR); URINE COLOR DARK YELLOW (YELLOW); URINE PROTEIN NEGATIVE mg/dL (<30 mg/dL)
--- NOTE | 2017-05-07 14:54 | CP.PCM.CON ---
<Masoud Hernandez - Last Filed: 05/07/17 15:05> History of Present Illness - History of Present Illness History of Present Illness: 46 M with PMHx of HTN, CAD with 2 stents, Bipolar dsr, polysubstance abuse and Depression presenting to [facility] psych after SI and attempting suicide by jumping in front of an automobile. Pt states that he's been having these feelings for " a long time" and doesn't know why he wants to kill himself other than he wishes to . He states that he has attempted to detox from his substance abuse, but relapsed most recently from opiate addiction. He admits to snorting two bags of heroin a day. Pt was seen and examined at bedside. Pt states he is withdrawing as he has vomitted multiple times overnight, as per pt and is feeling bone pain and feeling nauseous. Pt denies any other complaints at this time. As per nursing staff, no one has witness his multiple bouts of n/v. He denied fever chill, sob, chest pains, abdominal pains, d/c or urinary symptoms. PMH: [place], Bipolar disorder, CAD with 2 stents approx 2 years ago PSH: left ankle surg FH: brother has cancer, Parents healthy SH: 1/2ppd tobacco, denies etoh, admits to xanax and heroin abuse, homeless Meds: Asa Allergies: fish Review of Systems - Review of Systems Review of Systems: as per HPI otherwise negative Past Patient History - Infectious Disease Hx of Infectious Diseases: None - Tetanus Immunizations Tetanus Immunization: Up to Date - Past Medical History & Family History Past Medical History?: Yes - Past Social History Smoking Status: Heavy Smoker > 10 Cigarettes Daily - CARDIAC Hx Hypertension: Yes - NEUROLOGICAL Hx Seizures: No - HEENT Hx HEENT Problems: No - ENDOCRINE/METABOLIC Hx Hypothyroidism: No - HEMATOLOGICAL/ONCOLOGICAL Hx Blood Disorders: No - INTEGUMENTARY Hx Dermatological Problems: No - MUSCULOSKELETAL/RHEUMATOLOGICAL Hx Fractures: Yes (left leg splint-FX OF LEFT FEMUR FROM FALL) - GASTROINTESTINAL Hx Gastrointestinal Disorders: No - GENITOURINARY/GYNECOLOGICAL Hx Sexually Transmitted Disorders: No - PSYCHIATRIC Hx Anxiety: Yes Hx Bipolar Disorder: Yes Hx Depression: Yes Hx Substance Use: Yes - SURGICAL HISTORY Hx Appendectomy: Yes (at age 16) Hx Coronary Stent: Yes (x2 RCA 2012) - ANESTHESIA Hx Anesthesia: Yes Hx Anesthesia Reactions: No Meds Allergies/Adverse Reactions: Allergies Allergy/AdvReac Type Severity Reaction Status Date / Time FISH Allergy Intermediate RASH Verified 05/08/17 11:35 nitroglycerin Allergy RASH Verified 05/08/17 11:35 [From Nitro-Bid] - Medications Medications: Current Medications Acetaminophen (Tylenol 325mg Tab) 650 mg PO Q6H PRN PRN Reason: moderate pain and fever >100.3 Aspirin (Aspirin Chewable) 81 mg PO DAILY [facility] Last Admin: 05/07/17 08:38 Dose: 81 mg Atorvastatin Calcium (Lipitor) 40 mg PO DIN [facility] Last Admin: 05/06/17 17:09 Dose: 40 mg Clonidine HCl (Catapres) 0.1 mg PO BID PRN PRN Reason: opioid withdrawals Last Admin: 05/07/17 13:09 Dose: 0.1 mg Gabapentin (Neurontin) 100 mg PO TID [facility] PRN Reason: Protocol Last Admin: 05/07/17 12:43 Dose: 100 mg Hydroxyzine Pamoate (Vistaril) 50 mg PO Q8 PRN; Protocol PRN Reason: Anxiety Last Admin: 05/07/17 12:43 Dose: 50 mg Loperamide HCl (Imodium) 2 mg PO QID PRN PRN Reason: Diarrhea Lorazepam (Ativan) 2 mg PO QID [facility] PRN Reason: Protocol Last Admin: 05/07/17 12:43 Dose: 2 mg Metoprolol Succinate (Toprol Xl) 12.5 mg PO BRK [facility] Last Admin: 05/07/17 08:38 Dose: 12.5 mg Multivitamins (Thera Tab) 1 tab PO DAILY [facility] Last Admin: 05/07/17 08:38 Dose: 1 tab Nicotine (Nicoderm Cq) 1 patch TD DAILY [facility] Last Admin: 05/07/17 08:37 Dose: 1 patch Quetiapine Fumarate (Seroquel) 100 mg PO HS [facility] PRN Reason: Protocol Last Admin: 05/06/17 21:54 Dose: 100 mg Tramadol HCl (Ultram) 50 mg PO TID PRN PRN Reason: pain, severe 07/06 Last Admin: 05/07/17 13:09 Dose: 50 mg Ziprasidone (Geodon Inj) 20 mg IM Q6H PRN; Protocol PRN Reason: Agitation Last Admin: 05/07/17 14:39 Dose: 20 mg Physical Exam - Constitutional Appears: No Acute Distress - Head Exam Head Exam: ATRAUMATIC, NORMAL INSPECTION, NORMOCEPHALIC - Eye Exam Eye Exam: EOMI, Normal appearance, PERRL Pupil Exam: NORMAL ACCOMODATION, PERRL - ENT Exam ENT Exam: Mucous Membranes Dry - Neck Exam Neck exam: Positive for: Normal Inspection - Respiratory Exam Respiratory Exam: Clear to Auscultation Bilateral, NORMAL BREATHING PATTERN - Cardiovascular Exam Cardiovascular Exam: REGULAR RHYTHM - GI/Abdominal Exam GI & Abdominal Exam: Normal Bowel Sounds, Soft. absent: Tenderness - Extremities Exam Extremities exam: Positive for: normal inspection - Neurological Exam Neurological exam: Alert, CN II-XII Intact, Normal Gait, Oriented x3, Reflexes Normal - Psychiatric Exam Psychiatric exam: Agitated, Anxious, Depressed - Skin Skin Exam: Dry, Intact, Normal Color, Warm Results - Vital Signs Recent Vital Signs: Last Vital Signs Temp 98.1 F 05/07/17 06:43 Pulse 77 05/07/17 06:43 Resp 20 05/07/17 06:43 BP 110/69 05/07/17 06:43 Pulse Ox 96 05/06/17 09:35 - Labs Result Diagrams: 05/06/17 12:00 05/06/17 12:00 Labs: Laboratory Results - last 24 hr 05/07/17 05/07/17 12:30 12:30 Urine Color Dark yellow Urine Appearance Clear Urine pH >=9.0 Ur Specific Sterrett 1.015 Urine Protein Negative Urine Glucose (UA) Negative Urine Ketones Negative Urine Blood Negative Urine Nitrate Negative Urine Bilirubin Negative Urine Urobilinogen 4.0 H Ur Leukocyte Esterase Negative Urine Opiates Screen Positive H Urine Methadone Screen Negative Ur Barbiturates Screen Negative Ur Phencyclidine Scrn Negative Ur Amphetamines Screen Negative U Benzodiazepines Scrn Positive H U Oth Cocaine Metabols Negative U Cannabinoids Screen Negative Assessment & Plan - Assessment and Plan (Free Text) Assessment: 46 M with PMHx of SI with attempt present with similar episode admitted for evaluation and management of depression and suicidal ideation. Depression/SI with attempt -Follow Psych recs -Seroquel 200mg -Paxil 30mg Opioid Abuse -follow Psych recs -Pt. admits to snorting mulitple bags of heroin -Pt. also admits to acquiring methadone and oxycontin Hypertension -follow vitals -Metoprolol 12.5mg CAD -ASA 81mg -Lipitor 40mg -Metoprolol 12.5mg Chronic Left Ankle Pain -Gabapentin 300mg TID Tobacco abuse - counselled pt on cessation - nicotine patch Dyslipidemia - Lipitor seen reviewed and discussed with attending <Phil Dupree - Last Filed: 05/30/17 14:25> Results - Vital Signs Recent Vital Signs: Last Vital Signs Temp 98.1 F 05/07/17 06:43 Pulse 78 05/08/17 08:41 Resp 20 05/07/17 06:43 BP 143/96 H 05/08/17 08:41 Pulse Ox 96 05/06/17 09:35 - Labs Result Diagrams: 05/06/17 12:00 05/06/17 12:00 Attending/Attestation - Attestation I have personally seen and examined this patient.: Yes I have fully participated in the care of the patient.: Yes I have reviewed all pertinent clinical information: Yes Notes (Text): Agree with the above note.
[2017-05-08] MEDS: Multivitamin Therapeutic Tab PO SCH (07:54)
[2017-05-08] MEDS: Metoprolol Succinate 25 mg XL Tab PO SCH (08:41)
[2017-05-08 08:46] VITALS: BP 143/96; PULSE 78
--- NOTE | 2017-05-08 13:20 | CARD ---
APPROVED REPORT EKG Measurement Heart [id number] <Conclusion> Normal sinus rhythm Normal ECG
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
--- NOTE | 2017-05-08 16:41 | CP.PCM.PN ---
<Masoud Hernandez - Last Filed: 05/08/17 16:37> Subjective - Date & Time of Evaluation Date of Evaluation: 05/08/17 Time of Evaluation: 11:00 - Subjective Subjective: Pt had complaints of substernal chest pains radiating to the epigastrum. Pt states that the pain he is experiencing is similair to the episode he experienced when he had an VT in the past. Pt describes numbness in his left arm. He also states that he has a bad reaction to Nitroglycerin. EKG was performed on pt and found to be in NSR with no ST changes noted. The pt was started on and placed on a monitor. His vitals at the time were stable despite being slightly hypertensive. Pt was DC'ed from psych floor and transferred to the ED for further evaluation for chest pain to r/o acs. Objective - Vital Signs/Intake and Output Vital Signs (last 24 hours): Temp Pulse Resp BP Pulse Ox 98.1 F 78 20 143/96 H 96 05/07/17 06:43 05/08/17 08:41 05/07/17 06:43 05/08/17 08:41 05/06/17 09:35 - Labs Labs: 05/06/17 12:00 05/06/17 12:00 - Constitutional Appears: Agitated - Head Exam Head Exam: ATRAUMATIC, NORMAL INSPECTION, NORMOCEPHALIC - Eye Exam Eye Exam: EOMI, Normal appearance, PERRL Pupil Exam: NORMAL ACCOMODATION, PERRL - ENT Exam ENT Exam: Mucous Membranes Moist, Normal Exam - Respiratory Exam Respiratory Exam: Chest Wall Tenderness, Clear to Ausculation Bilateral, NORMAL BREATHING PATTERN - Cardiovascular Exam Cardiovascular Exam: REGULAR RHYTHM, +S1, +S2. absent: Murmur - GI/Abdominal Exam GI & Abdominal Exam: Soft, Normal Bowel Sounds. absent: Tenderness - Extremities Exam Extremities Exam: Full ROM, Normal Capillary Refill, Normal Inspection. absent : Joint Swelling, Pedal Edema - Neurological Exam Neurological Exam: Alert, Awake, CN II-XII Intact, Normal Gait, Oriented x3 - Psychiatric Exam Psychiatric exam: Agitated - Skin Skin Exam: Dry, Intact, Normal Color, Warm Assessment and Plan - Assessment and Plan (Free Text) Assessment: Pt had complaints of substernal chest pains radiating to the epigastrum. Pt states that the pain he is experiencing is similair to the episode he experienced when he had an VT in the past. Pt describes numbness in his left arm. He also states that he has a bad reaction to Nitroglycerin. EKG was performed on pt and found to be in NSR with no ST changes noted. The pt was started on 02 and placed on a monitor. His vitals at the time were stable despite being slightly hypertensive. Pt was DC'ed from psych floor and transferred to the ED for further evaluation for chest pain to r/o acs. Serial trops and serial EKGs. Aspirin. <Najma Arreguin - Last Filed: 05/08/17 17:30> Objective - Vital Signs/Intake and Output Vital Signs (last 24 hours): Temp Pulse Resp BP Pulse Ox 98.1 F 78 20 143/96 H 96 05/07/17 06:43 05/08/17 08:41 05/07/17 06:43 05/08/17 08:41 05/06/17 09:35 - Labs Labs: 05/06/17 12:00 05/06/17 12:00 Attending/Attestation - Attestation I have personally seen and examined this patient.: Yes I have fully participated in the care of the patient.: Yes I have reviewed all pertinent clinical information, including history, physical exam and plan: Yes Notes (Text): 05/08/17 17:15 On a scale of 1 to 10 the pain is described as an 8.It is not worse on deep breathing.No c/o fever,chills or cough. Denies calf pain.States he vomited once earlier today. O/E No calf tenderness was noted. Pt's current meds include ASA and Metoprolol. He was transferred to the ER by his RN and myself and was endorsed to ER MD Dr Wright. 05/08/17 17:21 05/08/17 17:25
== END 2017-05-08 11:00 | disposition short-term general hospital (02) | DRG 430 ==
LOC: ED 09:32 → ERH 10:22 → PSYC 10:36
PROVIDERS: ADMIT Psychiatry & Neurology Psychiatry; ATTEND Psychiatry & Neurology Psychiatry
DX: F31.81 Bipolar II disorder (principal); F11.20 Opioid dependence, uncomplicated; R45.851 Suicidal ideations; F14.10 Cocaine abuse, uncomplicated; F13.10 Sedative, hypnotic or anxiolytic abuse, uncomplicated; F19.14 Other psychoactive substance abuse with psychoactive substance-induced mood disorder; I10 Essential (primary) hypertension; E78.5 Hyperlipidemia, unspecified; F41.9 Anxiety disorder, unspecified; I25.2 Old myocardial infarction; G89.29 Other chronic pain; F10.10 Alcohol abuse, uncomplicated; I25.10 Atherosclerotic heart disease of native coronary artery without angina pectoris; Z95.5 Presence of coronary angioplasty implant and graft; Z79.82 Long term (current) use of aspirin; Z79.899 Other long term (current) drug therapy; Z80.9 Family history of malignant neoplasm, unspecified; Z90.49 Acquired absence of other specified parts of digestive tract; F17.210 Nicotine dependence, cigarettes, uncomplicated; Z91.013 Allergy to seafood; Z87.81 Personal history of (healed) traumatic fracture; M54.9 Dorsalgia, unspecified; Z59.0 Homelessness; M25.572 Pain in left ankle and joints of left foot; F60.2 Antisocial personality disorder; R07.89 Other chest pain; R20.0 Anesthesia of skin

== ENCOUNTER 2017-05-08 11:21 | Observation (INO) | payer MEDICAID ==
[2017-05-08 11:21] VITALS: BMI 32.3
--- NOTE | 2017-05-08 12:01 | ED PDOC ---
Arrival/HPI - General Chief Complaint: Chest Pain Time Seen by Provider: 05/08/17 11:28 Historian: Patient - History of Present Illness Narrative History of Present Illness (Text): 05/08/17 11:33 A 46 year old male, whose past medical history includes NM, 2 stent, and Bipolar disorder, is sent down from the [facility] department for complaints at chest pain that began and hour and half ago. The patient reports pain is centrally located and radiates down the mid abdomen and to the left arm. Pain is described as a burning sensation. Patient notes pain began suddenly while he was standing. There are not relieving or exacerbating factors. Patient has has similar episode in the past, the last one was about 2- 3 weeks ago. Patient notes an episode of vomiting prior to the pain and he has a rash the the central chest. Patient denies any fever, diarrhea, shortness of breath, or other complaints at this time. Patient mentions he was upstairs in the [facility] health department for suicidal ideation. PMD: Dr. Gutierrez Time/Duration: 1-3 hours Symptom Onset: Sudden Symptom Course: Unchanged Quality: Burning Activities at Onset: Rest Context: Standing Past Medical History - Provider Review Nursing Documentation Reviewed: Yes - Past History Past History: No Previous - Infectious Disease Hx of Infectious Diseases: None - Tetanus Immunization Tetanus Immunization: Up to Date - Cardiac Hx Cardiac Disorders: Yes Hx Hypertension: Yes - Pulmonary Hx Respiratory Disorders: No - Neurological Hx Neurological Disorder: No Hx Seizures: No - HEENT Hx HEENT Disorder: No - Renal Hx Renal Disorder: No - Endocrine/Metabolic Hx Endocrine Disorders: Yes Hx Hypothyroidism: Yes - Hematological/Oncological Hx Blood Disorders: No - Integumentary Hx Dermatological Disorder: No - Musculoskeletal/Rheumatological Hx Musculoskeletal Disorders: Yes Hx Fractures: Yes - Gastrointestinal Hx Gastrointestinal Disorders: No - Genitourinary/Gynecological Hx Genitourinary Disorders: No Hx Sexually Transmitted Diseases: No - Psychiatric Hx Psychophysiologic Disorder: Yes Hx Anxiety: Yes Hx Bipolar Disorder: Yes Hx Depression: Yes Hx Substance Use: No - Past Surgical History Past Surgical History: No Previous - Surgical History Hx Appendectomy: Yes (at age 16) Hx Coronary Stent: Yes (x2 RCA 2013) - Anesthesia Hx Anesthesia: Yes Hx Anesthesia Reactions: No - Suicidal Assessment Feels Threatened In Home Enviroment: No Family/Social History - Physician Review Nursing Documentation Reviewed: Yes Family/Social History: Unknown Family HX Smoking Status: Heavy Smoker > 10 Cigarettes Daily Hx Alcohol Use: No Hx Substance Use: No Substance used: heroin Hx Substance Use Treatment: No Allergies/Home Meds Allergies/Adverse Reactions: Allergies FISH Allergy (Intermediate, Verified 05/08/17 11:35) RASH nitroglycerin [From Nitro-Bid] Allergy (Verified 05/08/17 11:35) RASH Home Medications: Home Meds Medication Instructions Recorded Confirmed Gabapentin [Neurontin] 800 mg PO TID 05/06/17 05/06/17 QUEtiapine [SEROquel] 200 mg PO HS 05/06/17 05/06/17 Review of Systems - Physician Review All systems were reviewed & negative as marked: Yes - Review of Systems Constitutional: absent: Fevers Respiratory: absent: SOB Cardiovascular: Chest Pain Gastrointestinal: Abdominal Pain, Vomiting. absent: Diarrhea Physical Exam Vital Signs Reviewed: Yes Vital Signs Temp Pulse Resp BP Pulse Ox 05/08/17 13:36 68 18 131/71 99 05/08/17 12:53 69 18 132/76 99 05/08/17 11:30 98.4 F 73 18 134/77 99 Temperature: Afebrile Blood Pressure: Normal Pulse: Regular Respiratory Rate: Normal Appearance: Positive for: Well-Appearing, Non-Toxic, Comfortable Pain Distress: None Mental Status: Positive for: Alert and Oriented X 3 - Systems Exam Head: Present: Atraumatic, Normocephalic Pupils: Present: PERRL Extroacular Muscles: Present: EOMI Conjunctiva: Present: Normal Mouth: Present: Moist Mucous Membranes Neck: Present: Normal Range of Motion Respiratory/Chest: Present: Clear to Auscultation, Good Air Exchange. No: Respiratory Distress, Accessory Muscle Use Cardiovascular: Present: Regular Rate and Rhythm, Normal S1, S2. No: Murmurs Abdomen: Present: Normal Bowel Sounds. No: Tenderness, Distention, Peritoneal Signs Back: Present: Normal Inspection Upper Extremity: Present: Normal Inspection. No: Cyanosis, Edema Lower Extremity: Present: Normal Inspection. No: Edema Neurological: Present: GCS=15, Speech Normal Skin: Present: Warm, Dry, Normal Color. No: Rashes Psychiatric: Present: Alert, Oriented x 3, Normal Insight, Normal Concentration Medical Decision Making ED Course and Treatment: EKG: Ordered, reviewed, and independently interpreted the EKG. Rate : 75 BPM Rhythm : NSR Interpretation : normal intervals, normal axis, no acute ischemia 05/08/17 13:20 Repeat EKG: Unchanged from prior. 05/08/17 13:16 Chest X-ray: Creator : Roshan Mcnamara MD COMPARISON: 04/05/2017 FINDINGS: LUNGS: No active pulmonary disease. PLEURA: No significant pleural effusion identified, no pneumothorax apparent. CARDIOVASCULAR: Normal. OSSEOUS STRUCTURES: No significant abnormalities. VISUALIZED UPPER ABDOMEN: Normal. OTHER FINDINGS: None. IMPRESSION: No active disease. 05/08/17 14:05 Patient has an elevated D-Dimer of 0.76, will order an Angio Chest CT. 05/08/17 14:[address] Avila, who is aware and agrees with the plan to place the patient in Telemetry for observation for chest pain under her services. I have discussed the results and plan with the patient, who expresses understanding. Patient given the opportunity to ask question, all questions were answered and there is agreement with the plan to be admitted to the hospital. 05/08/17 14:[address]: Creator : Roshan Mcnamara MD COMPARISON: None available. FINDINGS: PULMONARY ARTERIES: Unremarkable. No pulmonary embolism. AORTA: No acute findings. No thoracic aortic aneurysm. LUNGS: Unremarkable. No nodule, mass or pulmonary consolidation. PLEURAL SPACES: Unremarkable. No effusion or pneuomothorax. HEART: Unremarkable. No cardiomegaly. No significant pericardial effusion. LYMPH NODES: No lymphadenopathy. BONES, CHEST WALL: Unremarkable. No fracture or destructive lesion OTHER FINDINGS: Unremarkable. IMPRESSION: Unremarkable CT pulmonary angiogram. No pulmonary embolus. - Lab Interpretations Lab Results: 05/08/17 12:05 05/08/17 12:05 Lab Results 05/08/17 13:05: Urine Opiates Screen Positive H, Urine Methadone Screen Negative , Ur Barbiturates Screen Negative, Ur Phencyclidine Scrn Negative, Ur Amphetamines Screen Negative, U Benzodiazepines Scrn Positive H, U Oth Cocaine Metabols Negative, U Cannabinoids Screen Negative 05/08/17 13:05: Urine Color Yellow, Urine Appearance Clear, Urine pH 8.0, Ur Specific Girard 1.020, Urine Protein Negative, Urine Glucose (UA) Negative, Urine Ketones Negative, Urine Blood Trace-intact H, Urine Nitrate Negative, Urine Bilirubin Negative, Urine Urobilinogen 1.0 H, Ur Leukocyte Esterase Negative, Urine RBC 2 - 5, Urine WBC 0 - 2, Urine Bacteria Few 05/08/17 12:05: D-Dimer, Quantitative 0.76 H 05/08/17 12:05: Sodium 141, Potassium 4.4, Chloride 105, Carbon Dioxide 25, Anion Gap 15, BUN 15, Creatinine 0.8, Est GFR ( Amer) > 60, Est GFR (Non- Af Amer) > 60, Random Glucose 83, Calcium 9.8, Total Bilirubin 0.7, AST 41, ALT 51, Alkaline Phosphatase 66, Troponin I < 0.01, Total Protein 8.4 H, Albumin 4.6 , Globulin 3.7, Albumin/Globulin Ratio 1.2, Lipase 71 05/08/17 12:05: WBC 7.1, RBC 4.55, Hgb 13.8 L, Hct 40.6 L, MCV 89.2, MCH 30.3, MCHC 34.0, RDW 13.7, Plt Count 305, MPV 9.0, Gran % 64.2, Lymph % (Auto) 26.7, [place] % (Auto) 6.3 H, Eos % (Auto) 2.0, Baso % (Auto) 0.8, Gran # 4.55, Lymph # 1.9, [place] # 0.5, Eos # 0.1, Baso # 0.06 I have reviewed the lab results: Yes - RAD Interpretation Radiology Orders: 05/08/17 11:40 CHEST PORTABLE [RAD] Stat 05/08/17 14:05 ANGIO CHEST PE PROTOCOL [CT] Stat - Medication Orders Current Medication Orders: Discontinued Medications Aspirin (Aspirin Chewable) 324 mg PO STAT STA Stop: 05/08/17 14:13 Iodixanol (Visipaque 320 Mg/Ml 100 Ml) Confirm Administered Dose 100 ml IV .STK- MED ONE Stop: 05/08/17 14:19 Ketorolac Tromethamine (Toradol) 10 mg IVP STAT STA Stop: 05/08/17 11:41 Last Admin: 05/08/17 12:05 Dose: 10 mg Morphine Sulfate (Morphine) 2 mg IVP STAT STA Stop: 05/08/17 13:02 Last Admin: 05/08/17 13:13 Dose: 2 mg Morphine Sulfate (Morphine) Confirm Administered Dose 2 mg .ROUTE .STK-MED ONE Stop: 05/08/17 13:12 Last Admin: 05/08/17 13:13 Dose: Ondansetron HCl (Zofran Inj) 4 mg IVP ONCE ONE Stop: 05/08/17 12:11 Last Admin: 05/08/17 12:37 Dose: 4 mg - Scribe Statement The provider has reviewed the documentation as recorded by the Sudhakar Mccann Provider Sudhakar Attestation: All medical record entries made by the Sudhakar were at my direction and personally dictated by me. I have reviewed the chart and agree that the record accurately reflects my personal performance of the history, physical exam, medical decision making, and the department course for this patient. I have also personally directed, reviewed, and agree with the discharge instructions and disposition. Disposition/Present on Arrival - Present on Arrival Any Indicators Present on Arrival: No History of DVT/PE: No History of Uncontrolled Diabetes: No Urinary Catheter: No History of Decub. Ulcer: No History Surgical Site Infection Following: None - Disposition Have Diagnosis and Disposition been Completed?: Yes Diagnosis: Chest pain Disposition: HOSPITALIZED Disposition Time: 14:11 Patient Problems: Current Active Problems Problem Status Onset Bipolar 2 disorder Acute Chest pain Acute Depression Acute Condition: STABLE
[2017-05-08 12:44] LABS: ADD MANUAL DIFF? NO
[2017-05-08 12:55] LABS: BASO # 0.06 K/mm3 (0.0-2.0); BASO % 0.8 % (0.0-3.0); EOS # 0.1 (0.0-0.7); GRAN # 4.55 (1.4-6.5); GRAN % 64.2 % (50.0-68.0); HEMATOCRIT 40.6 % (42.0-52.0); LYMPH # 1.9 (1.2-3.4); LYMPH % 26.7 % (22.0-35.0); MEAN CELL VOLUME 89.2 fL (80.0-105.0); MEAN CORPUSCULAR HEMOGLOBIN 30.3 pg (25.0-35.0); MONO # 0.5 (0.1-0.6); MONO % 6.3 % (1.0-6.0); PLATELET COUNT 305 10^3/uL (120.0-450.0); RED CELL DISTRIBUTION WIDTH 13.7 % (11.5-14.5); WHITE BLOOD COUNT 7.1 10^3/ul (4.5-11.0)
[2017-05-08 12:59] LABS: ALB/GLOB RATIO 1.2 (1.1-1.8); ALKALINE PHOSPHATASE 66 U/L (38-133); ALT/SGPT 51 U/L (7-56); AST/SGOT 41 U/L (15-59); BILIRUBIN,TOTAL 0.7 mg/dL (0.2-1.3); BLOOD UREA NITROGEN 15 mg/dL (7-21); CALCIUM 9.8 mg/dL (8.4-10.5); CARBON DIOXIDE 25 mmol/L (21-33); CHLORIDE 105 mmol/L (98-107); GFR AFRICAN-AMERICAN > 60; GLUCOSE,RANDOM 83 mg/dL (70-110); LIPASE 71 U/L (23-300); POTASSIUM 4.4 mmol/L (3.6-5.0); SODIUM 141 mmol/L (132-148); TOTAL PROTEIN 8.4 g/dL (5.8-8.3)
[2017-05-08] MEDS ORDERED: Morphine 2 mg/ml ISec IVP STA (13:01)
[2017-05-08] MEDS ORDERED: Morphine 2 mg/ml ISec ONE (13:11)
[2017-05-08 13:13] LABS: TROPONIN I < 0.01 ng/mL
--- NOTE | 2017-05-08 13:16 | RAD ---
HISTORY: cp COMPARISON: 04/05/2017 FINDINGS: LUNGS: No active pulmonary disease. PLEURA: No significant pleural effusion identified, no pneumothorax apparent. CARDIOVASCULAR: Normal. OSSEOUS STRUCTURES: No significant abnormalities. VISUALIZED UPPER ABDOMEN: Normal. OTHER FINDINGS: None. IMPRESSION: No active disease.
[2017-05-08 13:37] LABS: URINE BILIRUBIN NEGATIVE (NEGATIVE); URINE BLOOD TRACE-INTACT (NEGATIVE); URINE GLUCOSE (UA) NEGATIVE (NEGATIVE); URINE KETONE NEGATIVE (NEGATIVE); URINE LEUKOCYTE ESTERASE NEGATIVE Leu/uL (NEGATIVE); URINE PROTEIN NEGATIVE mg/dL (<30 mg/dL)
[2017-05-08 13:40] LABS: URINE APPEARANCE CLEAR (CLEAR); URINE COLOR YELLOW (YELLOW)
[2017-05-08 13:43] LABS: URINE BACTERIA FEW (NEG); URINE WBC 0 - 2 /hpf (0-6)
[2017-05-08] MEDS ORDERED: Iodixanol 320 MG/ML 100 ML BOTTLE IV ONE (14:18)
--- NOTE | 2017-05-08 14:40 | CT ---
PROCEDURE: CT Chest with contrast (Pulmonary Angiogram) HISTORY: chest pain +ddimer COMPARISON: None available. TECHNIQUE: Axial computed tomography images were obtained of the chest in the pulmonary arterial phase of enhancement. Coronal and sagittal reformatted images were created and reviewed. Intravenous contrast dose: 100 cc of Visipaque Radiation dose: Total exam DLP = 659 mGy-cm. This CT exam was performed using one or more of the following dose reduction techniques: Automated exposure control, adjustment of the mA and/or kV according to patient size, and/or use of iterative reconstruction technique. FINDINGS: PULMONARY ARTERIES: Unremarkable. No pulmonary embolism. AORTA: No acute findings. No thoracic aortic aneurysm. LUNGS: Unremarkable. No nodule, mass or pulmonary consolidation. PLEURAL SPACES: Unremarkable. No effusion or pneuomothorax. HEART: Unremarkable. No cardiomegaly. No significant pericardial effusion. LYMPH NODES: No lymphadenopathy. BONES, CHEST WALL: Unremarkable. No fracture or destructive lesion OTHER FINDINGS: Unremarkable. IMPRESSION: Unremarkable CT pulmonary angiogram. No pulmonary embolus.
--- NOTE | 2017-05-08 14:48 | CARD ---
APPROVED REPORT EKG Measurement Heart [id number] <Conclusion> Normal sinus rhythm Normal ECG
--- NOTE | 2017-05-08 15:11 | CARD ---
APPROVED REPORT EKG Measurement Heart [id number] <Conclusion> Normal sinus rhythm Normal ECG
--- NOTE | 2017-05-08 16:43 | CP.PCM.HP ---
Past Patient History - Infectious Disease Hx of Infectious Diseases: None - Tetanus Immunizations Tetanus Immunization: Up to Date - Past Medical History & Family History Past Medical History?: Yes - Past Social History Smoking Status: Heavy Smoker > 10 Cigarettes Daily - CARDIAC Hx Cardiac Disorders: Yes Hx Hypertension: Yes - PULMONARY Hx Respiratory Disorders: No - NEUROLOGICAL Hx Neurological Disorder: No Hx Seizures: No - HEENT Hx HEENT Problems: No - RENAL Hx Chronic Kidney Disease: No - ENDOCRINE/METABOLIC Hx Endocrine Disorders: Yes Hx Hypothyroidism: Yes - HEMATOLOGICAL/ONCOLOGICAL Hx Blood Disorders: No - INTEGUMENTARY Hx Dermatological Problems: No - MUSCULOSKELETAL/RHEUMATOLOGICAL Hx Musculoskeletal Disorders: Yes Hx Fractures: Yes - GASTROINTESTINAL Hx Gastrointestinal Disorders: No - GENITOURINARY/GYNECOLOGICAL Hx Genitourinary Disorders: No Hx Sexually Transmitted Disorders: No - PSYCHIATRIC Hx Psychophysiologic Disorder: Yes Hx Anxiety: Yes Hx Bipolar Disorder: Yes Hx Depression: Yes Hx Substance Use: No - SURGICAL HISTORY Hx Appendectomy: Yes (at age 16) Hx Coronary Stent: Yes (x2 RCA 2013) - ANESTHESIA Hx Anesthesia: Yes Hx Anesthesia Reactions: No Meds Allergies/Adverse Reactions: Allergies Allergy/AdvReac Type Severity Reaction Status Date / Time FISH Allergy Intermediate RASH Verified 05/08/17 11:35 nitroglycerin Allergy RASH Verified 05/08/17 11:35 [From Nitro-Bid] Results - Vital Signs Recent Vital Signs: Last Vital Signs Temp 98.4 F 05/08/17 11:30 Pulse 65 05/08/17 16:30 Resp 18 05/08/17 16:30 BP 125/68 05/08/17 16:30 Pulse Ox 99 05/08/17 16:30 - Labs Result Diagrams: 05/08/17 12:05 05/08/17 12:05
[2017-05-08] MEDS ORDERED: Morphine 2 mg/ml ISec IVP PRN (17:29)
[2017-05-08] MEDS ORDERED: oxyCODONE 15 mg Immediate Release Tab PO STA (21:39)
[2017-05-08 22:42] LABS: CHOLESTEROL 262 mg/dL (130-200)
[2017-05-08 22:54] LABS: TROPONIN I < 0.01 ng/mL
[2017-05-08] MEDS: Morphine 2 mg/ml ISec IVP PRN (23:33)
[2017-05-09 06:25] LABS: ADD MANUAL DIFF? NO
[2017-05-09 06:30] LABS: BASO # 0.07 K/mm3 (0.0-2.0); EOS # 0.3 (0.0-0.7); EOS % 3.5 % (1.5-5.0); GRAN # 3.69 (1.4-6.5); GRAN % 50.9 % (50.0-68.0); HEMATOCRIT 37.2 % (42.0-52.0); LYMPH # 2.6 (1.2-3.4); LYMPH % 35.7 % (22.0-35.0); MEAN CELL VOLUME 88.4 fL (80.0-105.0); MEAN CORPUSCULAR HEMOGLOBIN 30.4 pg (25.0-35.0); MEAN CORPUSCULAR HGB CONC 34.4 g/dl (31.0-37.0); MEAN PLATELET VOLUME 8.6 fl (7.0-11.0); MONO # 0.6 (0.1-0.6); MONO % 8.9 % (1.0-6.0); PLATELET COUNT 263 10^3/uL (120.0-450.0); RED CELL DISTRIBUTION WIDTH 13.8 % (11.5-14.5); WHITE BLOOD COUNT 7.2 10^3/ul (4.5-11.0)
[2017-05-09] MEDS: Morphine 2 mg/ml ISec IVP PRN (06:40)
[2017-05-09 06:53] LABS: ALB/GLOB RATIO 1.2 (1.1-1.8); ALKALINE PHOSPHATASE 59 U/L (38-133); ALT/SGPT 45 U/L (7-56); AST/SGOT 25 U/L (15-59); BILIRUBIN,TOTAL 0.5 mg/dL (0.2-1.3); BLOOD UREA NITROGEN 15 mg/dL (7-21); CARBON DIOXIDE 22 mmol/L (21-33); CHLORIDE 108 mmol/L (98-107); GFR AFRICAN-AMERICAN > 60; GLUCOSE,RANDOM 103 mg/dL (70-110); POTASSIUM 3.6 mmol/L (3.6-5.0); SODIUM 140 mmol/L (132-148); TOTAL PROTEIN 7.1 g/dL (5.8-8.3)
[2017-05-09 07:01] VITALS: RESP 20
[2017-05-09 07:01] LABS: TROPONIN I < 0.01 ng/mL
[2017-05-09] MEDS ORDERED: Levothyroxine 75 MCG TAB PO SCH (10:00)
[2017-05-09] MEDS: oxyCODONE 15 mg Immediate Release Tab PO SCH ×2 (10:31→14:15)
[2017-05-09 11:53] VITALS: BP 145/92; TEMP 98.3
--- NOTE | 2017-05-09 13:04 | CP.PCM.PN ---
Subjective - Date & Time of Evaluation Date of Evaluation: 05/09/17 Time of Evaluation: 10:30 Objective - Vital Signs/Intake and Output Vital Signs (last 24 hours): Temp Pulse Resp BP Pulse Ox 98.3 F 80 20 145/92 H 98 05/09/17 11:52 05/09/17 11:52 05/09/17 11:52 05/09/17 11:52 05/09/17 06:00 Intake and Output: 05/09/17 05/09/17 06:59 18:59 Intake Total 480 Balance 480 - Medications Medications: Current Medications Alprazolam (Xanax) 2 mg PO BID [facility] Last Admin: 05/09/17 10:29 Dose: 2 mg Aspirin (Aspirin Chewable) 81 mg PO DAILY [facility] Last Admin: 05/09/17 10:31 Dose: 81 mg Atorvastatin Calcium (Lipitor) 20 mg PO DAILY [facility] Last Admin: 05/09/17 10:31 Dose: 20 mg Carvedilol (Coreg) 3.125 mg PO DAILY [facility] Last Admin: 05/09/17 10:31 Dose: 3.125 mg Gabapentin (Neurontin) 800 mg PO TID [facility] Last Admin: 05/09/17 10:34 Dose: Not Given Levothyroxine Sodium (Synthroid) 75 mcg PO DAILY [facility] Last Admin: 05/09/17 10:31 Dose: 75 mcg Morphine Sulfate (Morphine) 2 mg IVP Q6H PRN PRN Reason: Pain, severe (8-10) Last Admin: 05/09/17 06:40 Dose: 2 mg Oxycodone HCl (Oxycodone Immediate Release Tab) 15 mg PO TID [facility] Last Admin: 05/09/17 10:31 Dose: 15 mg Quetiapine Fumarate (Seroquel) 200 mg PO HS [facility] Last Admin: 05/09/17 00:30 Dose: 200 mg - Labs Labs: 05/09/17 05:30 05/09/17 05:30
[2017-05-09 14:18] VITALS: O2SAT 96
[2017-05-09 14:23] VITALS: PULSE 61
--- NOTE | 2017-05-09 15:09 | CP.PCM.DIS ---
Provider - Provider Date of Admission: 05/08/17 14:21 Attending physician: Benoit Montgomery MD Primary care physician: NO PRIMARY CARE PROVIDER Consults: Cardio - [place] Time Spent in preparation of Discharge (in minutes): 45 Hospital Course - Lab Results Lab Results: Most Recent Lab Values WBC 7.2 10^3/ul (4.5-11.0) 05/09/17 05:30 RBC 4.21 10^6/uL (3.5-6.1) 05/09/17 05:30 Hgb 12.8 gm/dL (14.0-18.0) L 05/09/17 05:30 Hct 37.2 % (42.0-52.0) L 05/09/17 05:30 MCV 88.4 fL (80.0-105.0) 05/09/17 05:30 MCH 30.4 pg (25.0-35.0) 05/09/17 05:30 MCHC 34.4 g/dl (31.0-37.0) 05/09/17 05:30 RDW 13.8 % (11.5-14.5) 05/09/17 05:30 Plt Count 263 10^3/uL (120.0-450.0) 05/09/17 05:30 MPV 8.6 fl (7.0-11.0) 05/09/17 05:30 Gran % 50.9 % (50.0-68.0) 05/09/17 05:30 Lymph % (Auto) 35.7 % (22.0-35.0) H 05/09/17 05:30 [place] % (Auto) 8.9 % (1.0-6.0) H 05/09/17 05:30 Eos % (Auto) 3.5 % (1.5-5.0) 05/09/17 05:30 Baso % (Auto) 1.0 % (0.0-3.0) 05/09/17 05:30 Gran # 3.69 (1.4-6.5) 05/09/17 05:30 Lymph # 2.6 (1.2-3.4) 05/09/17 05:30 [place] # 0.6 (0.1-0.6) 05/09/17 05:30 Eos # 0.3 (0.0-0.7) 05/09/17 05:30 Baso # 0.07 K/mm3 (0.0-2.0) 05/09/17 05:30 D-Dimer, Quantitative 0.76 mg/L FEU (0-0.50) H 05/08/17 12:05 Sodium 140 mmol/L (132-148) 05/09/17 05:30 Potassium 3.6 mmol/L (3.6-5.0) 05/09/17 05:30 Chloride 108 mmol/L (98-107) H 05/09/17 05:30 Carbon Dioxide 22 mmol/L (21-33) 05/09/17 05:30 Anion Gap 14 (10-20) 05/09/17 05:30 BUN 15 mg/dL (7-21) 05/09/17 05:30 Creatinine 0.8 mg/dL (0.5-1.4) 05/09/17 05:30 Est GFR ( Amer) > 60 05/09/17 05:30 Est GFR (Non-Af Amer) > 60 05/09/17 05:30 Random Glucose 103 mg/dL (70-110) 05/09/17 05:30 Calcium 9.0 mg/dL (8.4-10.5) 05/09/17 05:30 Total Bilirubin 0.5 mg/dL (0.2-1.3) 05/09/17 05:30 AST 25 U/L (15-59) 05/09/17 05:30 ALT 45 U/L (7-56) 05/09/17 05:30 Alkaline Phosphatase 59 U/L (38-133) 05/09/17 05:30 Troponin I < 0.01 ng/mL 05/09/17 05:30 Total Protein 7.1 g/dL (5.8-8.3) 05/09/17 05:30 Albumin 3.8 g/dL (3.0-4.8) 05/09/17 05:30 Globulin 3.2 gm/dL 05/09/17 05:30 Albumin/Globulin Ratio 1.2 (1.1-1.8) 05/09/17 05:30 Triglycerides 151 mg/dL (35-160) 05/08/17 22:00 Cholesterol 262 mg/dL (130-200) H 05/08/17 22:00 LDL Cholesterol Direct 216 mg/dL (0-129) H 05/08/17 22:00 HDL Cholesterol 33 mg/dL (29-60) 05/08/17 22:00 Lipase 71 U/L (23-300) 05/08/17 12:05 TSH 3rd Generation 3.33 mIU/mL (0.46-4.68) 05/08/17 22:30 Urine Color Yellow (YELLOW) 05/08/17 13:05 Urine Appearance Clear (CLEAR) 05/08/17 13:05 Urine pH 8.0 (4.7-8.0) 05/08/17 13:05 Ur Specific [place] 1.020 (1.005-1.035) 05/08/17 13:05 Urine Protein Negative mg/dL (<30 mg/dL) 05/08/17 13:05 Urine Glucose (UA) Negative mg/dL (NEGATIVE) 05/08/17 13:05 Urine Ketones Negative mg/dL (NEGATIVE) 05/08/17 13:05 Urine Blood Trace-intact (NEGATIVE) H 05/08/17 13:05 Urine Nitrate Negative (NEGATIVE) 05/08/17 13:05 Urine Bilirubin Negative (NEGATIVE) 05/08/17 13:05 Urine Urobilinogen 1.0 E.U./dL (<1 E.U./dL) H 05/08/17 13:05 Ur Leukocyte Esterase Negative [place]/uL (NEGATIVE) 05/08/17 13:05 Urine RBC 2 - 5 /hpf (0-2) 05/08/17 13:05 Urine WBC 0 - 2 /hpf (0-6) 05/08/17 13:05 Urine Bacteria Few (NEG) 05/08/17 13:05 Urine Opiates Screen Positive (NEGATIVE) H 05/08/17 13:05 Urine Methadone Screen Negative (NEGATIVE) 05/08/17 13:05 Ur Barbiturates Screen Negative (NEGATIVE) 05/08/17 13:05 Ur Phencyclidine Scrn Negative (NEGATIVE) 05/08/17 13:05 Ur Amphetamines Screen Negative (NEGATIVE) 05/08/17 13:05 U Benzodiazepines Scrn Positive (NEGATIVE) H 05/08/17 13:05 U Oth Cocaine Metabols Negative (NEGATIVE) 06/12/17 13:05 U Cannabinoids Screen Negative (NEGATIVE) 05/08/17 13:05 Discharge Plan - Discharge Medications Prescriptions: Carvedilol [Coreg] 3.125 mg PO DAILY 30 Days Pantoprazole [Protonix EC Tab] 40 mg PO 0630 #30 - Follow Up Plan Condition: STABLE Disposition: HOME/ ROUTINE Instructions: Chest Pain (ED), Chest Pain (DC), Chest Pain (GEN), How to Stop Smoking (GEN), Cigarette Smoking and Your Health (GEN) Additional Instructions: Follow up with cardiology as out patient for stress test to rule out ischemia No smoking No Alcohol Referrals: PCP,NO [Primary Care Provider] - Follow up with primary
--- NOTE | 2017-05-09 16:16 | CON ---
DATE: 05/09/2017 REASON FOR CONSULTATION: Chest pain. HISTORY OF PRESENT ILLNESS: The patient is a 46-year-old male who has a history of bipolar disorder, history of coronary artery disease status post coronary stenting to the RCA and then to the LAD in 12/2011. The patient has been compliant with aspirin, but he does smoke. He presented because of epi gastric burning sensation. The patient denies any associated diaphoresis, dizziness or shortness of breath. He denies any radiation of his pain to the arm. SOCIAL HISTORY: The patient is a smoker. PAST MEDICAL HISTORY: The patient sustained a left foot fracture from fall on ice and underwent open reduction and internal fixation. CURRENT MEDICATIONS: Aspirin 81 mg once a day, Coreg 3.125 mg once a day, Lipitor 20 mg once a day, morphine sulfate 2 mg intravenously q. 6 hours, Neurontin 800 mg t.i.d., oxycodone 15 mg p.o. t.i.d., Seroquel 200 mg at bedtime, Synthroid 75 mcg once a day. PHYSICAL EXAMINATION: GENERAL: The patient is a middle-aged male who does not appear to be in any distress. VITAL SIGNS: Blood pressure 145/92, heart rate 80, temperature 98.3, blood pressures were with in normal limits. HEENT: Normocephalic. NECK: No JVD. CHEST: Clear. HEART: S1, S2 regular. ABDOMEN: Soft. EXTREMITIES: No edema. LABORATORY DATA: Hemoglobin and hematocrit 12.8 and 37.2, white count and platelet count are within normal limits. SMA-7 on admission was within normal limits. Three sets of troponins are within norm al limits. Total cholesterol 262, LDL cholesterol 216; both are elevated. EKG revealed normal sinus rhythm. The most recent echo was on 03/24/2017, which revealed normal ejection fraction. Toxicolog y screen was positive for benzodiazepine and opiates, most likely because of patient's medications. ASSESSMENT: 1. Atypical chest pain, myocardial infarction is ruled out. 2. Rule out gastritis or peptic ulcer disease. 3. Coronary artery disease, status post 2-vessel stenting in the past. 4. Bipolar disorder. 5. Hyperlipidemia. RECOMMENDATIONS: Continue aspirin 81 mg once a day, Coreg 3.125 mg twice a day, Lipitor 20 mg once a day, Synthroid 75 mcg once a day. Start Protonix at 40 mg p.o. once a day. Consider GI evaluation and schedule the patient for a stress test as an outpatient. Isidro Veras MD cc: [id number] TT: 05/09/2017 16:16:17 Confirmation # [id number] Dictation # [id number]
--- NOTE | 2017-05-09 16:43 | CP.PCM.PCO ---
Physician Communication Note - Physician Communication Note Physician Communication Note: d/w , pt denied SI/HI, no psychosis, stable for d/c
[2017-05-10] MEDS ORDERED: Pantoprazole 40 mg EC Tab PO SCH (06:30)
== END 2017-05-09 14:36 | disposition home or self-care (01) ==
LOC: ED 11:21 → ERH 14:21 → 2RSO 21:34
PROVIDERS: ADMIT Internal Medicine; ATTEND Internal Medicine
DX: R07.89 Other chest pain (principal); F31.9 Bipolar disorder, unspecified; I25.10 Atherosclerotic heart disease of native coronary artery without angina pectoris; E78.5 Hyperlipidemia, unspecified; F17.200 Nicotine dependence, unspecified, uncomplicated; Z95.5 Presence of coronary angioplasty implant and graft
CPT/HCPCS: 36415; 71010; 71275; 80053; 80061; 80324; 80345; 80346; 80349; 80353; 80358; 80361; 81001; 83690; 83992; 84443; 84484; 85025; 85378; 93005; 96374; 96375; 96376; 99285; G0378; J1885; J2270; J2405; Q9967